=== PATIENT | male | born 1975 | race American Indian/Alaskan Native ===

== ENCOUNTER 2020-10-27 20:37 | Inpatient (IN) | payer OTHER ==
[2020-10-27] MEDS ORDERED: ACETAMINOPHEN 500 MG TAB PO ONE (20:52)
--- NOTE | 2020-10-27 21:57 | XRay Report ---
CHEST 1 VIEW 10/27/2020 9:31 PM INDICATION / CLINICAL INFORMATION: sob, COVID+. COMPARISON: None available. FINDINGS: SUPPORT DEVICES: None. HEART / MEDIASTINUM: Mildly enlarged cardiac silhouette. No other significant abnormality. LUNGS / PLEURA: There are bilateral airspace opacities. No significant pleural effusion. No pneumotho rax. ADDITIONAL FINDINGS: No significant additional findings. IMPRESSION: Bilateral pneumonia. Continued radiographic follow-up to resolution is recommended. Signer Name: John Patel MD Signed: 10/27/2020 9:52 PM Workstation Name: [id number]
[2020-10-27] MEDS ORDERED: DEXAMETHASONE 4 MG TAB PO ONE (22:00)
[2020-10-27] MEDS ORDERED: AZITHROMYCIN 250 MG TAB PO ONE (22:00)
[2020-10-27] MEDS ORDERED: cefTRIAXone/NS 1 GM/50 ML 1 GM/50 ML BAG IV ONE (22:00)
[2020-10-27 22:05] LABS: Basophils % (Auto) 0.6 % (0.0-1.8); Hematocrit 40.2 % (35.5-45.6); Hemoglobin 13.3 gm/dl (11.8-15.2); Lymphocytes % (Auto) 14.3 % (13.4-35.0); Mean Corpuscular HGB Conc 33 % (32-34); Mean Corpuscular Volume 92 fl (84-94); Monocytes # (Auto) 0.9 K/mm3 (0.0-0.8); Monocytes % (Auto) 12.2 % (0.0-7.3); Platelet Count 189 K/mm3 (140-440); Red Blood Count 4.39 M/mm3 (3.65-5.03); Red Cell Distribution Width 13.3 % (13.2-15.2)
--- NOTE | 2020-10-27 22:09 | Emergency Department Report ---
ED Shortness of Breath HPI - General Chief Complaint: Dyspnea/Respdistress Stated Complaint: COVID POSITIVE;WEAKNESS;CONSUELO Time Seen by Provider: 10/27/20 21:11 Source: patient Mode of arrival: Stretcher Limitations: No Limitations - History of Present Illness Initial Comments: 44-year-old male, no past medical history, presents to ED with shortness of br eath. Patient states he tested positive for COVID-19 approximately 4 days ago. Patient states he began having symptoms approximately 1 week ago, which consisted of fever, loss of smell and taste, decreased appetite, and headache. Patient states approximately 3 days ago he began to have dyspnea on exertion which has been progressively worsening. Patient states he has not received his COVID-19 vaccine. MD Complaint: shortness of breath -: week(s) (1) Severity: moderate Consistency: intermittent Improves With: rest Worsens With: exertion Context: recent URI Associated Symptoms: fever Treatments Prior to Arrival: none - Related Data Home Oxygen Therapy: No Allergies Allergy/AdvReac Type Severity Reaction Status Date / Time No Known Allergies Allergy Verified 10/27/20 22:48 ED Review of Systems ROS: Stated complaint: COVID POSITIVE;WEAKNESS;CONSUELO Other details as noted in HPI Comment: All other systems reviewed and negative Constitutional: fever, malaise ENT: other (Reports loss of smell and taste) Respiratory: shortness of breath Neurological: headache ED Past Medical Hx - Past Medical History Previous Medical History?: No - Surgical History Past Surgical History?: No - Social History Smoking Status: Never Smoker Substance Use Type: None ED Physical Exam - General Limitations: No Limitations General appearance: alert, in no apparent distress - Head Head exam: Present: atraumatic, normocephalic - Eye Eye exam: Present: normal appearance, EOMI - ENT ENT exam: Present: mucous membranes moist - Neck Neck exam: Present: normal inspection - Respiratory Respiratory exam: Present: normal lung sounds bilaterally. Absent: respiratory distress - Cardiovascular Cardiovascular Exam: Present: normal rhythm, tachycardia - GI/Abdominal GI/Abdominal exam: Present: soft. Absent: distended, tenderness - Extremities Exam Extremities exam: Present: normal inspection - Neurological Exam Neurological exam: Present: alert, oriented X3 - Psychiatric Psychiatric exam: Present: normal affect, normal mood - Skin Skin exam: Present: warm, dry, intact, normal color ED Course Vital Signs 10/27/20 10/27/20 10/27/20 20:55 22:09 23:48 Temperature 102 F H 100.6 F H Pulse Rate 110 H 102 H Respiratory 16 16 Rate Blood Pressure 112/72 Blood Pressure 120/76 [Left] O2 Sat by Pulse 97 89 95 Oximetry 10/28/20 10/28/20 00:31 01:13 Temperature 98.6 F Pulse Rate 101 H Respiratory 20 20 Rate Blood Pressure 128/81 Blood Pressure [Left] O2 Sat by Pulse 98 95 Oximetry ED Medical Decision Making - Lab Data Result diagrams: 10/27/20 21:49 10/27/20 21:49 - EKG Data -: EKG Interpreted by Id EKG shows normal: sinus rhythm, axis, intervals, QRS complexes, ST-T waves Rate: tachycardia (rate 112) - EKG Data Interpretation: no acute changes - Radiology Data Radiology results: report reviewed, image reviewed - Medical Decision Making 44-year-old male, no past medical history, presents to ED with difficulty breathing. Patient is Covid positive per outside testing. O2 sats 89% on room air here in the ED. Patient has been placed on 4 L O2 via nasal cannula. Chest x-ray shows bilateral pneumonia. Blood cultures drawn, patient given Rocephin, azithromycin, and Decadron. Patient will be admitted by the hospitalist, Dr. Mahoney, for further management. - Differential Diagnosis COVID-19, pneumonia Critical Care Time: Yes Critical care time in (mins) excluding proc time.: 35 Critical care attestation.: If time is entered above; I have spent that time in minutes in the direct care of this critically ill patient, excluding procedure time. Critical Care Time: 35 min ED Disposition Clinical Impression: Pneumonia due to COVID-19 virus, Acute respiratory failure with hypoxia Disposition: OP ADMIT IP TO THIS HOSP Is pt being admited?: Yes Condition: Stable Time of Disposition: 22:24
[2020-10-27 22:17] LABS: BUN/Creatinine Ratio 13; Blood Urea Nitrogen 14 mg/dL (9-20); Calcium 8.3 mg/dL (8.4-10.2); Hemolysis Index 161
[2020-10-27 22:22] LABS: Alanine Aminotransferase 58 units/L (7-56); Albumin 3.2 g/dL (3.9-5)
[2020-10-27 22:23] LABS: Bilirubin,Direct < 0.2 mg/dL (0-0.2); C-Reactive Protein 7.4 mg/dL (0.00-1.30)
[2020-10-27] MEDS ORDERED: hydrALAZINE 20 MG/1 ML INJ IV PRN (22:48)
--- NOTE | 2020-10-27 22:53 | History and Physical Report ---
History of Present Illness Date of examination: 10/27/20 Date of admission: 10/27/20 Chief complaint: Shortness of breath Respiratory distress History of present illness: 44-year-old male with no significant past medical history was brought to the emergency room with shortness of breath, fever, decreased appetite and headache for the last 1 week. Patient was tested positive for Covid 4 days ago. For the last 3 4 days patient shortness of breath is getting worse particularly on exertion. Patient did not take the Covid vaccine. In the emergency room patient is found to have a hypoxic. Covid inflammatory markers are elevated. Medications and Allergies Allergies Allergy/AdvReac Type Severity Reaction Status Date / Time No Known Allergies Allergy Verified 10/27/20 22:48 Active Meds: Active Medications Dexamethasone (Dexamethasone 4 Mg/Ml Vial) 6 mg IV DAILY ONE Stop: 10/27/20 22:48 Famotidine (Famotidine 20 Mg Tab) 20 mg PO BID [facility] Heparin Sodium (Porcine) (Heparin 5,000 Unit/1 Ml Vial) 5,000 unit SUB-Q Q8HR [facility] Hydralazine HCl (Hydralazine 20 Mg/1 Ml Inj) 10 mg IV Q6H PRN PRN Reason: htn Ceftriaxone Sodium (Rocephin/Ns 2 Gm/100 Ml) 2 gm in 100 mls @ 200 mls/hr IV Q24H [facility]; Protocol Azithromycin (Zithromax/Ns) 500 mg in 250 mls @ 250 mls/hr IV Q24H [facility]; Protocol Review of Systems Constitutional: fever, chills, weakness, malaise Respiratory: cough, shortness of breath, dyspnea on exertion Exam - Constitutional Vitals: Temp Pulse Resp BP Pulse Ox 102 F H 110 H 16 112/72 89 10/27/20 20:55 10/27/20 20:55 10/27/20 20:55 10/27/20 20:55 10/27/20 22:09 General appearance: Present: no acute distress, well-nourished - EENT Eyes: Present: PERRL ENT: hearing intact, clear oral mucosa - Neck Neck: Present: supple, normal ROM - Respiratory Respiratory effort: normal Respiratory: bilateral: diminished - Cardiovascular Heart Sounds: Present: S1 & S2. Absent: rub, click - Extremities Extremities: pulses symmetrical, No edema Peripheral Pulses: within normal limits - Abdominal General gastrointestinal: Present: soft, non-tender, non-distended, normal bowel sounds Male genitourinary: Present: normal - Integumentary Integumentary: Present: clear, warm, dry - Musculoskeletal Musculoskeletal: gait normal, strength equal bilaterally - Psychiatric Psychiatric: appropriate mood/affect, intact judgment & insight - Neurologic Neurologic: CNII-XII intact, moves all extremities HEART Score - HEART Score Troponin: Troponin T < 0.010 ng/mL (0.00-0.029) 10/27/20 22:20 Results - Labs CBC & Chem 7: 10/27/20 21:49 10/27/20 21:49 Labs: Laboratory Last Values WBC 7.3 K/mm3 (4.5-11.0) 10/27/20 21:49 RBC 4.39 M/mm3 (3.65-5.03) 10/27/20 21:49 Hgb 13.3 gm/dl (11.8-15.2) 10/27/20 21:49 Hct 40.2 % (35.5-45.6) 10/27/20 21:49 MCV 92 fl (84-94) 10/27/20 21:49 MCH 30 pg (28-32) 10/27/20 21:49 MCHC 33 % (32-34) 10/27/20 21:49 RDW 13.3 % (13.2-15.2) 10/27/20 21:49 Plt Count 189 K/mm3 (140-440) 10/27/20 21:49 Lymph % (Auto) 14.3 % (13.4-35.0) 10/27/20 21:49 [place] % (Auto) 12.2 % (0.0-7.3) H 10/27/20 21:49 Eos % (Auto) 0.0 % (0.0-4.3) 10/27/20 21:49 Baso % (Auto) 0.6 % (0.0-1.8) 10/27/20 21:49 Lymph # (Auto) 1.0 K/mm3 (1.2-5.4) L 10/27/20 21:49 [place] # (Auto) 0.9 K/mm3 (0.0-0.8) H 10/27/20 21:49 Eos # (Auto) 0.0 K/mm3 (0.0-0.4) 10/27/20 21:49 Baso # (Auto) 0.0 K/mm3 (0.0-0.1) 10/27/20 21:49 Seg Neutrophils % 72.9 % (40.0-70.0) H 10/27/20 21:49 Seg Neutrophils # 5.3 K/mm3 (1.8-7.7) 10/27/20 21:49 D-Dimer 1296.09 ng/mlDDU (0-234) H 10/27/20 21:49 Sodium 134 mmol/L (137-145) L 10/27/20 21:49 Potassium 4.4 mmol/L (3.6-5.0) 10/27/20 21:49 Chloride 96.2 mmol/L (98-107) L 10/27/20 21:49 Carbon Dioxide 29 mmol/L (22-30) 10/27/20 21:49 Anion Gap 13 mmol/L 10/27/20 21:49 BUN 14 mg/dL (9-20) 10/27/20 21:49 Creatinine 1.1 mg/dL (0.8-1.3) 10/27/20 21:49 Estimated GFR > 60 ml/min 10/27/20 21:49 BUN/Creatinine Ratio 13 % 10/27/20 21:49 Glucose 161 mg/dL (75-100) H 10/27/20 21:49 Glucose 166 mg/dL (75-100) H 10/27/20 21:49 Calcium 8.3 mg/dL (8.4-10.2) L 10/27/20 21:49 Ferritin > 2000.0 ng/mL (30.0-300.0) H 10/27/20 21:49 Total Bilirubin 0.90 mg/dL (0.1-1.2) 10/27/20 21:49 Direct Bilirubin < 0.2 mg/dL (0-0.2) 10/27/20 21:49 Indirect Bilirubin 0.7 mg/dL 10/27/20 21:49 AST 122 units/L (5-40) H 10/27/20 21:49 ALT 58 units/L (7-56) H 10/27/20 21:49 Alkaline Phosphatase 82 units/L (35-129) 10/27/20 21:49 Lactate Dehydrogenase 1964 units/L (91-180) H 10/27/20 21:49 Troponin T < 0.010 ng/mL (0.00-0.029) 10/27/20 22:20 C-Reactive Protein 7.40 mg/dL (0.00-1.30) H 10/27/20 21:49 Total Protein 7.6 g/dL (6.3-8.2) 10/27/20 21:49 Albumin 3.2 g/dL (3.9-5) L 10/27/20 21:49 Albumin/Globulin Ratio 0.7 % 10/27/20 21:49 - Imaging and Cardiology Chest x-ray: image reviewed Assessment and Plan VTE prophylaxis?: Chemical Plan of care discussed with patient/family: Yes - Patient Problems (1) Acute respiratory failure with hypoxia Current Visit: Yes Status: Acute Plan to address problem: Admit the patient to the medical floor. Oxygen by nasal cannula 3 L/min. DuoNeb by nebulizer every 4 hours as needed. Rocephin 2 g IV daily and Zithromax 500 mg IV daily. Decadron 6 mg IV daily. We do the blood cultures sputum culture. We also consult infectious disease for evaluation and treatment. Follow the Covid inflammatory marker. Recheck CBC BMP in the morning (2) Pneumonia due to COVID-19 virus Current Visit: Yes Status: Acute Plan to address problem: Oxygen by nasal cannula 3 L/min. DuoNeb by nebulizer every 4 hours as needed. Rocephin 2 g IV daily and Zithromax 500 mg IV daily. Decadron 6 mg IV daily. We do the blood cultures sputum culture. We also consult infectious disease for evaluation and treatment. Follow the Covid inflammatory marker. Recheck CBC BMP in the morning (3) Hypoxia Current Visit: Yes Status: Acute Plan to address problem: Oxygen by nasal cannula 3 L/min. DuoNeb by nebulizer every 4 hours as needed. Consult pulmonary if needed. Heparin 5000 units subcu every 8 hours (4) DVT prophylaxis Current Visit: Yes Status: Acute Plan to address problem: Heparin 5000 units subcu every 8 hours for DVT prophylaxis. Pepcid 20 mg p.o. twice daily for GI prophylaxis. Patient is a full code
[2020-10-27] MEDS ORDERED: ONDANSETRON 4 MG/2 ML INJ IV PRN (23:15)
[2020-10-27] MEDS ORDERED: ACETAMINOPHEN 325 MG TAB PO PRN (23:15)
[2020-10-28] MEDS ORDERED: HEPARIN 5,000 UNIT/1 ML VIAL SUB-Q SCH (06:00)
[2020-10-28 06:37] LABS: Hematocrit 39.3 % (35.5-45.6); Hemoglobin 13.2 gm/dl (11.8-15.2); Mean Corpuscular HGB Conc 34 % (32-34); Mean Corpuscular Volume 90 fl (84-94); Platelet Count 219 K/mm3 (140-440); Red Blood Count 4.36 M/mm3 (3.65-5.03)
[2020-10-28 06:58] LABS: BUN/Creatinine Ratio 16; Blood Urea Nitrogen 16 mg/dL (9-20); Calcium 8.6 mg/dL (8.4-10.2); Hemolysis Index 198
--- NOTE | 2020-10-28 09:07 | Progress Note ---
Assessment and Plan Assessment and plan: #Acute hypoxic respiratory failure Continue oxygen supplementation Currently on 3 L of oxygen #COVID-19 pneumonia Continue oxygen supplementation Ceftriaxone azithromycin Dexamethasone ID consult for remdesivir Trend inflammatory markers Proning as much as possible DVT prophylaxis #DVT prophylaxis-Lovenox History Interval history: 44-year-old male with no significant past medical history was brought to the emergency room with shortness of breath, fever, decreased appetite and headache for the last 1 week. Patient was tested positive for Covid 4 days ago. For the last 3 - 4 days patients shortness of breath has been getting worse particularly on exertion. Patient did not take the Covid vaccine. Due to persisting symptoms, he presented to the ED for further evaluation. Here in the emergency room he was found to have a hypoxic. Chest xray showed bilateral infiltrates. He was started on antibiotics and dexamethasone and admitted. 10/28. Patient seen and examined at bedside. Comfortable at rest but gets dyspneic with ambulation. On 3L oxygen. Ordered incentive spirometer. Advised proning as much as possible. Will consult pulmonary. Hospitalist Physical - Physical exam Narrative exam: VITAL SIGNS: Reviewed. GENERAL: Awake HEAD: No signs of head trauma. EYES: Pupils are equal. Extraocular motions intact. MOUTH: Oropharynx is normal. NECK: No adenopathy, no JVD. CHEST: Chest with diminished breath sounds bilaterally. No wheezes, rales, or rhonchi. CARDIAC: normal S1 and S2, without murmurs, gallops, or rubs. ABDOMEN: Soft, non tender and non distended. No rebound or guarding, and no masses palpated. Bowel Sounds normal. MUSCULOSKELETAL: No edema NEUROLOGIC EXAM: Alert and oriented x3. No focal neurologic deficits SKIN: No obvious lesions - Constitutional Vitals: Temp Pulse Resp BP Pulse Ox 98.1 F 93 H 16 114/82 96 10/28/20 04:35 10/28/20 04:35 10/28/20 04:35 10/28/20 04:35 10/28/20 04:35 HEART Score - HEART Score Troponin: Troponin T < 0.010 ng/mL (0.00-0.029) 10/27/20 22:20 Results - Labs CBC & Chem 7: 10/28/20 05:33 10/28/20 14:03 Labs: Laboratory Last Values WBC 6.5 K/mm3 (4.5-11.0) 10/28/20 05:33 RBC 4.36 M/mm3 (3.65-5.03) 10/28/20 05:33 Hgb 13.2 gm/dl (11.8-15.2) 10/28/20 05:33 Hct 39.3 % (35.5-45.6) 10/28/20 05:33 MCV 90 fl (84-94) 10/28/20 05:33 MCH 30 pg (28-32) 10/28/20 05:33 MCHC 34 % (32-34) 10/28/20 05:33 RDW 13.0 % (13.2-15.2) L 10/28/20 05:33 Plt Count 219 K/mm3 (140-440) 10/28/20 05:33 Lymph % (Auto) 14.3 % (13.4-35.0) 10/27/20 21:49 [place] % (Auto) 12.2 % (0.0-7.3) H 10/27/20 21:49 Eos % (Auto) 0.0 % (0.0-4.3) 10/27/20 21:49 Baso % (Auto) 0.6 % (0.0-1.8) 10/27/20 21:49 Lymph # (Auto) 1.0 K/mm3 (1.2-5.4) L 10/27/20 21:49 [place] # (Auto) 0.9 K/mm3 (0.0-0.8) H 10/27/20 21:49 Eos # (Auto) 0.0 K/mm3 (0.0-0.4) 10/27/20 21:49 Baso # (Auto) 0.0 K/mm3 (0.0-0.1) 10/27/20 21:49 Seg Neutrophils % 72.9 % (40.0-70.0) H 10/27/20 21:49 Seg Neutrophils # 5.3 K/mm3 (1.8-7.7) 10/27/20 21:49 D-Dimer 1296.09 ng/mlDDU (0-234) H 10/27/20 21:49 Sodium 135 mmol/L (137-145) L 10/28/20 05:33 Potassium 5.0 mmol/L (3.6-5.0) 10/28/20 05:33 Chloride 97.0 mmol/L (98-107) L 10/28/20 05:33 Carbon Dioxide 27 mmol/L (22-30) 10/28/20 05:33 Anion Gap 16 mmol/L 10/28/20 05:33 BUN 16 mg/dL (9-20) 10/28/20 05:33 Creatinine 1.0 mg/dL (0.8-1.3) 10/28/20 05:33 Estimated GFR > 60 ml/min 10/28/20 05:33 BUN/Creatinine Ratio 16 % 10/28/20 05:33 Glucose 222 mg/dL (75-100) H 10/28/20 05:33 Calcium 8.6 mg/dL (8.4-10.2) 10/28/20 05:33 Ferritin > 2000.0 ng/mL (30.0-300.0) H 10/27/20 21:49 Total Bilirubin 0.90 mg/dL (0.1-1.2) 10/27/20 21:49 Direct Bilirubin < 0.2 mg/dL (0-0.2) 10/27/20 21:49 Indirect Bilirubin 0.7 mg/dL 10/27/20 21:49 AST 122 units/L (5-40) H 10/27/20 21:49 ALT 58 units/L (7-56) H 10/27/20 21:49 Alkaline Phosphatase 82 units/L (35-129) 10/27/20 21:49 Lactate Dehydrogenase 1964 units/L (91-180) H 10/27/20 21:49 Troponin T < 0.010 ng/mL (0.00-0.029) 10/27/20 22:20 C-Reactive Protein 7.40 mg/dL (0.00-1.30) H 10/27/20 21:49 Total Protein 7.6 g/dL (6.3-8.2) 10/27/20 21:49 Albumin 3.2 g/dL (3.9-5) L 10/27/20 21:49 Albumin/Globulin Ratio 0.7 % 10/27/20 21:49 Microbiology: Microbiology 10/27/20 21:49 Peripheral/Venous Blood Culture - Preliminary Culture in Progress 10/27/20 21:49 Peripheral/Venous Blood Culture - Preliminary Culture in Progress [place]/IV: Voiding Method Urinal Active Medications - Current Medications Current Medications: Generic Name Dose Route Start Last Admin Trade Name Freq PRN Reason Stop Dose Admin Acetaminophen 650 mg 10/27/20 23:15 Acetaminophen 325 Mg Tab PO Q4H PRN Pain MILD(1-3)/Fever >100.5/MALIK Dexamethasone 6 mg 10/28/20 22:00 Dexamethasone 4 Mg/Ml Vial IV DAILY@2200 [facility] Famotidine 20 mg 10/28/20 10:00 Famotidine 20 Mg Tab PO BID [facility] Heparin Sodium (Porcine) 5,000 unit 10/28/20 06:00 10/28/20 05:34 Heparin 5,000 Unit/1 Ml Vial SUB-Q 5,000 unit Q8HR [facility] Administration Hydralazine HCl 10 mg 10/27/20 22:48 Hydralazine 20 Mg/1 Ml Inj IV Q6H PRN htn Ceftriaxone Sodium 2 gm in 100 mls @ 200 mls/hr 10/28/20 22:00 Rocephin/Ns 2 Gm/100 Ml IV Q24H [facility] Protocol Azithromycin 500 mg in 250 mls @ 250 mls/hr 10/28/20 22:00 Zithromax/Ns IV Q24H [facility] Protocol Ondansetron HCl 4 mg 10/27/20 23:15 Ondansetron 4 Mg/2 Ml Inj IV Q8H PRN Nausea And Vomiting Sodium Chloride 10 ml 10/28/20 10:00 Sodium Chloride 0.9% 10 Ml Flush Syringe IV BID [facility] Sodium Chloride 10 ml 10/27/20 23:15 Sodium Chloride 0.9% 10 Ml Flush Syringe IV PRN PRN LINE FLUSH
[2020-10-28] MEDS: FAMOTIDINE 20 MG TAB PO SCH ×2 (10:11→21:14)
[2020-10-28] MEDS: ASCORBIC ACID 500 MG TAB PO SCH (10:11)
[2020-10-28] MEDS: ZINC SULFATE 220 MG CAP PO SCH (10:11)
[2020-10-28] MEDS: BENZONATATE 100 MG CAP PO SCH ×3 (10:11→21:15)
[2020-10-28] MEDS ORDERED: REMDESIVIR 100 MG VIAL IV ONE (12:00)
[2020-10-28] MEDS ORDERED: REMDESIVIR 200 MG in SODIUM CHLORIDE 0.9% 250ML 250 ML IV ONE (12:00)
[2020-10-28] MEDS ORDERED: FUROSEMIDE 20 MG/2 ML INJ IV ONE (12:55)
--- NOTE | 2020-10-28 12:56 | Consultation ---
History of Present Illness Consult date: 10/28/20 Requesting physician: AUDRA YOUSSEF Reason for consult: hypoxemia History of present illness: 44 y/o male with acute respiratory failure secondary to covid 19. Medications and Allergies Allergies Allergy/AdvReac Type Severity Reaction Status Date / Time No Known Allergies Allergy Verified 10/27/20 22:48 Active Meds: Active Medications Acetaminophen (Acetaminophen 325 Mg Tab) 650 mg PO Q4H PRN PRN Reason: Pain MILD(1-3)/Fever >100.5/MALIK Ascorbic Acid (Ascorbic Acid 500 Mg Tab) 500 mg PO QDAY [facility] Last Admin: 10/28/20 10:11 Dose: 500 mg Documented by: Benzonatate (Benzonatate 100 Mg Cap) 100 mg PO Q8HR [facility] Last Admin: 10/28/20 10:11 Dose: 100 mg Documented by: Dexamethasone (Dexamethasone 4 Mg/Ml Vial) 6 mg IV DAILY@2200 [facility] Enoxaparin Sodium (Enoxaparin 40 Mg/0.4 Ml Inj) 40 mg SUB-Q QDAY@2200 [facility]; Protocol Famotidine (Famotidine 20 Mg Tab) 20 mg PO BID [facility] Last Admin: 10/28/20 10:11 Dose: 20 mg Documented by: Furosemide (Furosemide 20 Mg/2 Ml Inj) 20 mg IV ONCE ONE Stop: 10/28/20 12:56 Hydralazine HCl (Hydralazine 20 Mg/1 Ml Inj) 10 mg IV Q6H PRN PRN Reason: htn Ceftriaxone Sodium (Rocephin/Ns 2 Gm/100 Ml) 2 gm in 100 mls @ 200 mls/hr IV Q24H [facility]; Protocol Azithromycin (Zithromax/Ns) 500 mg in 250 mls @ 250 mls/hr IV Q24H [facility]; Protocol REMDESIVIR 100 mg/ Sodium (Chloride) 250 mls @ 500 mls/hr IV Q24HR@2100 [facility] Stop: 11/01/20 21:29 Ondansetron HCl (Ondansetron 4 Mg/2 Ml Inj) 4 mg IV Q8H PRN PRN Reason: Nausea And Vomiting Sodium Chloride (Sodium Chloride 0.9% 10 Ml Flush Syringe) 10 ml IV BID [facility] Last Admin: 10/28/20 10:11 Dose: 10 ml Documented by: Sodium Chloride (Sodium Chloride 0.9% 10 Ml Flush Syringe) 10 ml IV PRN PRN PRN Reason: LINE FLUSH Sodium Chloride (Sodium Chloride 0.9% 50 Ml Ivpb) 50 ml IV Q24HR@2100 [facility] Stop: 10/31/20 21:01 Zinc Sulfate (Zinc Sulfate 220 Mg Cap) 220 mg PO QDAY [facility] Last Admin: 10/28/20 10:11 Dose: 220 mg Documented by: Physical Examination Vital signs: Vital Signs Temp Pulse Resp BP Pulse Ox 102 F H 110 H 16 112/72 97 10/27/20 20:55 10/27/20 20:55 10/27/20 20:55 10/27/20 20:55 10/27/20 20:55 Results - Laboratory Findings CBC and BMP: 10/28/20 05:33 10/29/20 07:11 PT/INR, D-dimer D-Dimer 1296.09 ng/mlDDU (0-234) H 10/27/20 21:49 Abnormal lab findings: Abnormal Labs 10/27/20 10/27/20 10/27/20 21:49 21:49 21:49 RDW [place] % (Auto) 12.2 H Lymph # (Auto) 1.0 L [place] # (Auto) 0.9 H Seg Neutrophils % 72.9 H D-Dimer Sodium 134 L Chloride 96.2 L Glucose 166 H Calcium 8.3 L Ferritin AST 122 H ALT 58 H Lactate Dehydrogenase C-Reactive Protein Albumin 3.2 L 10/27/20 10/27/20 10/27/20 21:49 21:49 21:49 RDW [place] % (Auto) Lymph # (Auto) [place] # (Auto) Seg Neutrophils % D-Dimer 1296.09 H Sodium Chloride Glucose 161 H Calcium Ferritin > 2000.0 H AST ALT Lactate Dehydrogenase 1964 H C-Reactive Protein 7.40 H Albumin 10/28/20 10/28/20 05:33 05:33 RDW 13.0 L [place] % (Auto) Lymph # (Auto) [place] # (Auto) Seg Neutrophils % D-Dimer Sodium 135 L Chloride 97.0 L Glucose 222 H Calcium Ferritin AST ALT Lactate Dehydrogenase C-Reactive Protein Albumin Assessment and Plan Prone as tolerated daily and sleep prone at night Suggest ID consult for Remdesivier and consideration of Actemra Limit excess volume Lasix 20mg IV x1 today.
--- NOTE | 2020-10-28 13:30 | Consultation ---
History of Present Illness - Reason for Consult Consult date: 10/28/20 COVID19 Requesting physician: HANANE ROMEO - History of Present Illness 44 years old male with no significant medical history, admitted on 10/27/2020 secondary to 4 days history of generalized malaise, subjective fever, decreased appetite, headaches, loss of smell and taste, shortness of breath and progressive dyspnea on exertion. Patient tested positive for COVID-19 4 days before admission. On arrival, temperature 102, HR 110, RR 16, O2 sat 97, BP 112/72. Initial WBC 7.3. D-dimer 1296. Ferritin> 2000. LDH 1964. Creatinine 1.1. CRP 7.4. AST 122. ALT 58. Blood cultures no growth today. Chest x-ray shows bilateral infiltrates. O2 sats dropped to 89%. Patient currently on 2 L nasal cannula. Review of Systems: positive in bold print General: fever, chills, malaise Cutaneous: rash, pruritus Head: headaches or injury Eyes: changes in vision, eye pain, double vision Ears: ear pain, ear discharge, ringing or hearing loss Nose: nose bleeding, stuffiness Mouth & throat: bleeding gums, horseness, no dental problems, or swollen glands Neck: no pain, node enlargement/lumps, tyroid enlargement or tenderness Respiratory: SOB, cough, FRAZIER, wheezing, sputum, hemoptysis, pleuritic chest pain Cardiovascular: chest pain, leg edema, cyanosis, FRAZIER, orthopnea Musculoskeletal: edema, deformities, pain Gastrointestinal: nausea, vomiting, hematemesis, diarrhea, constipation, melena, bright red blood in stools, fecal incontinence, jaundice Genitourinary/Reproductive: frequent urination, dysuria, hematuria, incontinence Neurogical: seizures, headaches, weakness, paresthesias, loss of speech or vision; memory loss, vertigo, tremors, numbness Psychiatric: stable mood; excessive anxiety, sadness or moodiness Medications and Allergies Allergies Allergy/AdvReac Type Severity Reaction Status Date / Time No Known Allergies Allergy Verified 10/27/20 22:48 Active Meds: Active Medications Acetaminophen (Acetaminophen 325 Mg Tab) 650 mg PO Q4H PRN PRN Reason: Pain MILD(1-3)/Fever >100.5/MALIK Ascorbic Acid (Ascorbic Acid 500 Mg Tab) 500 mg PO QDAY CARMEL Last Admin: 10/28/20 10:11 Dose: 500 mg Documented by: Benzonatate (Benzonatate 100 Mg Cap) 100 mg PO Q8HR [facility] Last Admin: 10/28/20 10:11 Dose: 100 mg Documented by: Dexamethasone (Dexamethasone 4 Mg/Ml Vial) 6 mg IV DAILY@2200 [facility] Enoxaparin Sodium (Enoxaparin 40 Mg/0.4 Ml Inj) 40 mg SUB-Q QDAY@2200 [facility]; Protocol Famotidine (Famotidine 20 Mg Tab) 20 mg PO BID [facility] Last Admin: 10/28/20 10:11 Dose: 20 mg Documented by: Hydralazine HCl (Hydralazine 20 Mg/1 Ml Inj) 10 mg IV Q6H PRN PRN Reason: htn Ceftriaxone Sodium (Rocephin/Ns 2 Gm/100 Ml) 2 gm in 100 mls @ 200 mls/hr IV Q24H [facility]; Protocol Azithromycin (Zithromax/Ns) 500 mg in 250 mls @ 250 mls/hr IV Q24H [facility]; Protocol REMDESIVIR 100 mg/ Sodium (Chloride) 250 mls @ 500 mls/hr IV Q24HR@2100 [facility] Stop: 11/01/20 21:29 Ondansetron HCl (Ondansetron 4 Mg/2 Ml Inj) 4 mg IV Q8H PRN PRN Reason: Nausea And Vomiting Sodium Chloride (Sodium Chloride 0.9% 10 Ml Flush Syringe) 10 ml IV BID [facility] Last Admin: 10/28/20 10:11 Dose: 10 ml Documented by: Sodium Chloride (Sodium Chloride 0.9% 10 Ml Flush Syringe) 10 ml IV PRN PRN PRN Reason: LINE FLUSH Sodium Chloride (Sodium Chloride 0.9% 50 Ml Ivpb) 50 ml IV Q24HR@2100 [facility] Stop: 10/31/20 21:01 Zinc Sulfate (Zinc Sulfate 220 Mg Cap) 220 mg PO QDAY [facility] Last Admin: 10/28/20 10:11 Dose: 220 mg Documented by: Physical Examination - Physical Exam Narrative exam: General appearance: Alert in NAD pleasant Eyes: anicteric sclerae, moist conjunctivae; no lid-lag; PERRLA HENT: Normocephalic, Atraumatic; normal external ears, nares open, oropharynx clear Neck: supple, tracheal midline, no JVD Lungs: Bilateral crackles CV: Tachycardic Abdomen: Soft, non-tender; no masses or hepatosplenomegaly Extremities: no edema, no cyanosis Skin: No rash. Psych: no agitated Neuro: alert and oriented x 3. Moving all extermities - Constitutional Vitals: Vital Signs Temp Pulse Resp BP Pulse Ox 98.1 F 93 H 16 114/82 95 10/28/20 04:35 10/28/20 04:35 10/28/20 04:35 10/28/20 04:35 10/28/20 09:52 Temperature -Last 24 Hours Temperature 98.1 F Temperature 98.6 F Temperature 100.6 F Temperature 102 F Results - Labs CBC & Chem 7: 10/28/20 05:33 10/28/20 05:33 Labs: Abnormal lab results 10/27/20 10/27/20 10/27/20 Range/Units 21:49 21:49 21:49 RDW (13.2-15.2) % [place] % (Auto) 12.2 H (0.0-7.3) % Lymph # (Auto) 1.0 L (1.2-5.4) K/mm3 [place] # (Auto) 0.9 H (0.0-0.8) K/mm3 Seg Neutrophils % 72.9 H (40.0-70.0) % D-Dimer (0-234) ng/mlDDU Sodium 134 L (137-145) mmol/L Chloride 96.2 L (98-107) mmol/L Glucose 166 H (75-100) mg/dL Calcium 8.3 L (8.4-10.2) mg/dL Ferritin (30.0-300.0) ng/mL AST 122 H (5-40) units/L ALT 58 H (7-56) units/L Lactate Dehydrogenase (91-180) units/L C-Reactive Protein (0.00-1.30) mg/dL Albumin 3.2 L (3.9-5) g/dL 10/27/20 10/27/20 10/27/20 Range/Units 21:49 21:49 21:49 RDW (13.2-15.2) % [place] % (Auto) (0.0-7.3) % Lymph # (Auto) (1.2-5.4) K/mm3 [place] # (Auto) (0.0-0.8) K/mm3 Seg Neutrophils % (40.0-70.0) % D-Dimer 1296.09 H (0-234) ng/mlDDU Sodium (137-145) mmol/L Chloride (98-107) mmol/L Glucose 161 H (75-100) mg/dL Calcium (8.4-10.2) mg/dL Ferritin > 2000.0 H (30.0-300.0) ng/mL AST (5-40) units/L ALT (7-56) units/L Lactate Dehydrogenase 1964 H (91-180) units/L C-Reactive Protein 7.40 H (0.00-1.30) mg/dL Albumin (3.9-5) g/dL 10/28/20 10/28/20 Range/Units 05:33 05:33 RDW 13.0 L (13.2-15.2) % [place] % (Auto) (0.0-7.3) % Lymph # (Auto) (1.2-5.4) K/mm3 [place] # (Auto) (0.0-0.8) K/mm3 Seg Neutrophils % (40.0-70.0) % D-Dimer (0-234) ng/mlDDU Sodium 135 L (137-145) mmol/L Chloride 97.0 L (98-107) mmol/L Glucose 222 H (75-100) mg/dL Calcium (8.4-10.2) mg/dL Ferritin (30.0-300.0) ng/mL AST (5-40) units/L ALT (7-56) units/L Lactate Dehydrogenase (91-180) units/L C-Reactive Protein (0.00-1.30) mg/dL Albumin (3.9-5) g/dL Assessment and Plan Cultures: Blood culture SARS CoV2 PCR Assessment: 44 years old male with no significant medical history, admitted on 10/27/2020 secondary to 4 days history of generalized malaise, subjective fever, decreased appetite, headaches, loss of smell and taste, shortness of breath and progressive dyspnea on exertion. Patient tested positive for COVID-19 4 days before admission: #Severe sepsis: Present on admission with tachycardia, high fever, hypoxia, likely due to bilateral pneumonia. #Severe COVID pneumonia: SARS-CoV-2 PCR positive as an outpatient. Chest x-ray with bilateral infiltrates. Inflammatory markers elevated. D-dimer 1296. Ferritin> 2000. LDH 1964. CRP 7.4. #Acute hypoxemic respiratory failure: O2 sats dropped to 89%, patient currently on 2 L nasal cannula #Elevated LFTs: from COVID initial AST 122. ALT 58. Recommendations: -Start Dexamethasone 6 mg IV/PO daily for 10 days -Start Remdesivir for 5 days (CrCl>30 mg/mL) -Monitor inflammatory markers - ferritin, Ddimer, CRP, LDH -Monitor liver function test on Remdesivir -Continue anticoagulation per System Protocol -Prone positioning as possible -Check procalcitonin, if low, stop azithromycin and ceftriaxone All laboratory, cultures and imaging were reviewed. Will follow Anh Kaur MD Infectious Diseases [facility] ([facility] M [phone] O [phone]
[2020-10-28] MEDS: SODIUM CHLORIDE 0.9% 50 ML IVPB IV SCH ×2 (14:00→21:14)
[2020-10-28 14:38] LABS: Band Neutrophils # (Manual) 0.3 K/mm3; Total Cells Counted 100
[2020-10-28 14:39] LABS: Anisocytosis 1+; Ovalocytes Few; Platelet Estimate Consistent w Auto
[2020-10-28 14:59] LABS: Alanine Aminotransferase 58 units/L (7-56); Albumin 3.3 g/dL (3.9-5); BUN/Creatinine Ratio 21; Blood Urea Nitrogen 19 mg/dL (9-20); Calcium 8.8 mg/dL (8.4-10.2); Hemolysis Index 181
--- NOTE | 2020-10-28 15:23 | Vascular Lab Report ---
DUPLEX DOPPLER LOWER EXTREMITY VEINS, BILATERAL INDICATION / CLINICAL INFORMATION: Bilateral lower extremity pain/swelling, possible DVT. TECHNIQUE: Duplex doppler imaging was performed through the veins of both lower extremities using venous deysi marjorie and other maneuvers. COMPARISON: None available. FINDINGS: RIGHT COMMON FEMORAL VEIN: Negative. RIGHT FEMORAL VEIN: Negative. RIGHT POPLITEAL VEIN: Negative. RIGHT CALF VEINS: Negative. LEFT COMMON FEMORAL VEIN: Negative. LEFT FEMORAL VEIN: Negative. LEFT POPLITEAL VEIN: Negative. LEFT CALF VEINS: Negative. ADDITIONAL FINDINGS: None. IMPRESSION: 1. No sonographic evidence for DVT in either lower extremity. Signer Name: John Patel MD Signed: 10/28/2020 3:19 PM Workstation Name: [id number]
[2020-10-28] MEDS: ENOXAPARIN 40 MG/0.4 ML INJ SUB-Q SCH (21:10)
[2020-10-28] MEDS ORDERED: dexAMETHasone 4 MG/ML VIAL IV SCH (22:00)
[2020-10-28] MEDS ORDERED: AZITHROMYCIN/NS 500 MG/250 ML 500 MG/250 ML BAG IV SCH (22:00)
[2020-10-28] MEDS ORDERED: cefTRIAXone/NS 2 GM/100 ML 2 GM/100 ML BAG IV SCH (22:00)
[2020-10-29] MEDS: BENZONATATE 100 MG CAP PO SCH ×3 (05:47→21:17)
[2020-10-29 08:01] LABS: Alanine Aminotransferase 49 units/L (7-56); Albumin 3.3 g/dL (3.9-5); BUN/Creatinine Ratio 26; Blood Urea Nitrogen 23 mg/dL (9-20); Calcium 8.7 mg/dL (8.4-10.2); Hemolysis Index 136
--- NOTE | 2020-10-29 09:17 | Progress Note ---
Assessment and Plan Assessment and plan: #Acute hypoxic respiratory failure Continue oxygen supplementation #COVID-19 pneumonia Continue oxygen supplementation Ceftriaxone and azithromycin. Procalcitonin pending Dexamethasone Remdesivir Trend inflammatory markers Proning as much as possible DVT prophylaxis per facility protocol Pulmonology and ID following #DVT prophylaxis-Lovenox History Interval history: 44-year-old male with no significant past medical history was brought to the emergency room with shortness of breath, fever, decreased appetite and headache for the last 1 week. Patient was tested positive for Covid 4 days ago. For the last 3 - 4 days patients shortness of breath has been getting worse particularly on exertion. Patient did not take the Covid vaccine. Due to persisting symptoms, he presented to the ED for further evaluation. Here in the emergency room he was found to have a hypoxic. Chest xray showed bilateral infiltrates. He was started on antibiotics and dexamethasone and admitted. 10/28. Patient seen and examined at bedside. Comfortable at rest but gets dy spneic with ambulation. On 3L oxygen. Ordered incentive spirometer. Advised proning as much as possible. Will consult pulmonary. 10/29. He feels just about the same. Remains on oxygen. Pulmonology and ID following. Awaiting procalcitonin. Continue IV antibiotics and dexamethasone. On remdesivir day 2. Hospitalist Physical - Physical exam Narrative exam: VITAL SIGNS: Reviewed. GENERAL: Awake HEAD: No signs of head trauma. EYES: Pupils are equal. Extraocular motions intact. MOUTH: Oropharynx is normal. NECK: No adenopathy, no JVD. CHEST: Chest with diminished breath sounds bilaterally. No wheezes, rales, or rhonchi. CARDIAC: normal S1 and S2, without murmurs, gallops, or rubs. ABDOMEN: Soft, non tender and non distended. No rebound or guarding, and no masses palpated. Bowel Sounds normal. MUSCULOSKELETAL: No edema NEUROLOGIC EXAM: Alert and oriented x3. No focal neurologic deficits SKIN: No obvious lesions - Constitutional Vitals: Temp Pulse Resp BP Pulse Ox 98.5 F 86 20 125/83 96 10/29/20 05:09 10/29/20 05:09 10/29/20 05:09 10/29/20 05:09 10/29/20 05:09 HEART Score - HEART Score Troponin: Troponin T < 0.010 ng/mL (0.00-0.029) 04/10/21 22:20 Results - Labs CBC & Chem 7: 10/28/20 05:33 10/29/20 07:11 Labs: Laboratory Last Values WBC 6.5 K/mm3 (4.5-11.0) 10/28/20 05:33 RBC 4.36 M/mm3 (3.65-5.03) 10/28/20 05:33 Hgb 13.2 gm/dl (11.8-15.2) 10/28/20 05:33 Hct 39.3 % (35.5-45.6) 10/28/20 05:33 MCV 90 fl (84-94) 10/28/20 05:33 MCH 30 pg (28-32) 10/28/20 05:33 MCHC 34 % (32-34) 10/28/20 05:33 RDW 13.0 % (13.2-15.2) L 10/28/20 05:33 Plt Count 219 K/mm3 (140-440) 10/28/20 05:33 Lymph % (Auto) 14.3 % (13.4-35.0) 10/27/20 21:49 [place] % (Auto) 12.2 % (0.0-7.3) H 10/27/20 21:49 Eos % (Auto) 0.0 % (0.0-4.3) 10/27/20 21:49 Baso % (Auto) 0.6 % (0.0-1.8) 10/27/20 21:49 Lymph # (Auto) 1.0 K/mm3 (1.2-5.4) L 10/27/20 21:49 [place] # (Auto) 0.9 K/mm3 (0.0-0.8) H 10/27/20 21:49 Eos # (Auto) 0.0 K/mm3 (0.0-0.4) 10/27/20 21:49 Baso # (Auto) 0.0 K/mm3 (0.0-0.1) 10/27/20 21:49 Add Manual Diff Complete 10/28/20 05:33 Total Counted 100 10/28/20 05:33 Seg Neutrophils % 72.9 % (40.0-70.0) H 10/27/20 21:49 Seg Neuts % (Manual) 70.0 % (40.0-70.0) 10/28/20 05:33 Band Neutrophils % 5.0 % 10/28/20 05:33 Lymphocytes % (Manual) 13.0 % (13.4-35.0) L 10/28/20 05:33 Reactive Lymphs % (Man) 1.0 % 10/28/20 05:33 Monocytes % (Manual) 11.0 % (0.0-7.3) H 10/28/20 05:33 Nucleated RBC % Not Reportable 10/28/20 05:33 Seg Neutrophils # 5.3 K/mm3 (1.8-7.7) 10/27/20 21:49 Seg Neutrophils # Man 4.6 K/mm3 (1.8-7.7) 10/28/20 05:33 Band Neutrophils # 0.3 K/mm3 10/28/20 05:33 Lymphocytes # (Manual) 0.8 K/mm3 (1.2-5.4) L 10/28/20 05:33 Abs React Lymphs (Man) 0.1 K/mm3 10/28/20 05:33 Monocytes # (Manual) 0.7 K/mm3 (0.0-0.8) 10/28/20 05:33 Eosinophils # (Manual) 0.0 K/mm3 (0.0-0.4) 10/28/20 05:33 Basophils # (Manual) 0.0 K/mm3 (0.0-0.1) 10/28/20 05:33 Metamyelocytes # 0.0 K/mm3 10/28/20 05:33 Myelocytes # 0.0 K/mm3 10/28/20 05:33 Promyelocytes # 0.0 K/mm3 10/28/20 05:33 Blast Cells # 0.0 K/mm3 10/28/20 05:33 WBC Morphology Not Reportable 10/28/20 05:33 Hypersegmented Neuts Not Reportable 10/28/20 05:33 Hyposegmented Neuts Not Reportable 10/28/20 05:33 Hypogranular Neuts Not Reportable 10/28/20 05:33 Smudge Cells Not Reportable 10/28/20 05:33 Toxic Granulation Not Reportable 10/28/20 05:33 Toxic Vacuolation Not Reportable 10/28/20 05:33 Dohle Bodies Not Reportable 10/28/20 05:33 Pelger-Huet Anomaly Not Reportable 10/28/20 05:33 Ramiro Rods Not Reportable 10/28/20 05:33 Platelet Estimate Consistent w auto 10/28/20 05:33 Clumped Platelets Not Reportable 10/28/20 05:33 Plt Clumps, EDTA Not Reportable 10/28/20 05:33 Large Platelets Not Reportable 10/28/20 05:33 Giant Platelets Not Reportable 10/28/20 05:33 Platelet Satelliting Not Reportable 10/28/20 05:33 Plt Morphology Comment Not Reportable 10/28/20 05:33 RBC Morphology Not Reportable 10/28/20 05:33 Dimorphic RBCs Not Reportable 10/28/20 05:33 Polychromasia Not Reportable 10/28/20 05:33 Hypochromasia Not Reportable 10/28/20 05:33 Poikilocytosis Not Reportable 10/28/20 05:33 Anisocytosis 1+ 10/28/20 05:33 Microcytosis Not Reportable 10/28/20 05:33 Macrocytosis Not Reportable 10/28/20 05:33 Spherocytes Not Reportable 10/28/20 05:33 Pappenheimer Bodies Not Reportable 10/28/20 05:33 Sickle Cells Not Reportable 10/28/20 05:33 Target Cells Not Reportable 10/28/20 05:33 Tear Drop Cells Not Reportable 10/28/20 05:33 Ovalocytes Few 10/28/20 05:33 Helmet Cells Not Reportable 10/28/20 05:33 Villegas-Walker Bodies Not Reportable 10/28/20 05:33 [place] Rings Not Reportable 10/28/20 05:33 [place] Cells Not Reportable 10/28/20 05:33 Bite Cells Not Reportable 10/28/20 05:33 Crenated Cell Not Reportable 10/28/20 05:33 Elliptocytes Not Reportable 10/28/20 05:33 Acanthocytes (Spur) Not Reportable 10/28/20 05:33 Rouleaux Not Reportable 10/28/20 05:33 Hemoglobin C Crystals Not Reportable 10/28/20 05:33 Schistocytes Not Reportable 10/28/20 05:33 Malaria parasites Not Reportable 10/28/20 05:33 Toro Bodies Not Reportable 10/28/20 05:33 Hem Pathologist Commnt No 10/28/20 05:33 D-Dimer 1296.09 ng/mlDDU (0-234) H 10/27/20 21:49 Sodium 134 mmol/L (137-145) L 10/29/20 07:11 Potassium 4.5 mmol/L (3.6-5.0) 10/29/20 07:11 Chloride 97.9 mmol/L (98-107) L 10/29/20 07:11 Carbon Dioxide 27 mmol/L (22-30) 10/29/20 07:11 Anion Gap 14 mmol/L 10/29/20 07:11 BUN 23 mg/dL (9-20) H 10/29/20 07:11 Creatinine 0.9 mg/dL (0.8-1.3) 10/29/20 07:11 Estimated GFR > 60 ml/min 10/29/20 07:11 BUN/Creatinine Ratio 26 % 10/29/20 07:11 Glucose 224 mg/dL (75-100) H 10/29/20 07:11 Hemoglobin A1c 5.8 % (4-6) 10/29/20 04:53 Calcium 8.7 mg/dL (8.4-10.2) 10/29/20 07:11 Ferritin > 2000.0 ng/mL (30.0-300.0) H 10/27/20 21:49 Total Bilirubin 0.90 mg/dL (0.1-1.2) 10/29/20 07:11 Direct Bilirubin < 0.2 mg/dL (0-0.2) 10/27/20 21:49 Indirect Bilirubin 0.7 mg/dL 10/27/20 21:49 AST 71 units/L (5-40) H 10/29/20 07:11 ALT 49 units/L (7-56) 10/29/20 07:11 Alkaline Phosphatase 73 units/L (35-129) 10/29/20 07:11 Lactate Dehydrogenase 1964 units/L (91-180) H 10/27/20 21:49 Troponin T < 0.010 ng/mL (0.00-0.029) 10/27/20 22:20 C-Reactive Protein 7.40 mg/dL (0.00-1.30) H 10/27/20 21:49 NT-Pro-B Natriuret Pep 102.7 pg/mL (0-450) 10/29/20 07:11 Total Protein 7.5 g/dL (6.3-8.2) 10/29/20 07:11 Albumin 3.3 g/dL (3.9-5) L 10/29/20 07:11 Albumin/Globulin Ratio 0.8 % 10/29/20 07:11 Coronavirus (PCR) Positive (Negative) A 10/28/20 Unknown Microbiology: Microbiology 10/27/20 21:49 Peripheral/Venous Blood Culture - Preliminary NO GROWTH AFTER 24 HOURS 10/27/20 21:49 Peripheral/Venous Blood Culture - Preliminary NO GROWTH AFTER 24 HOURS [place]/IV: Voiding Method Toilet Active Medications - Current Medications Current Medications: Generic Name Dose Route Start Last Admin Trade Name Freq PRN Reason Stop Dose Admin Acetaminophen 650 mg 10/27/20 23:15 Acetaminophen 325 Mg Tab PO Q4H PRN Pain MILD(1-3)/Fever >100.5/MALIK Ascorbic Acid 500 mg 10/28/20 10:00 10/28/20 10:11 Ascorbic Acid 500 Mg Tab PO 500 mg QDAY CARMEL Administration Benzonatate 100 mg 10/28/20 10:00 10/29/20 05:47 Benzonatate 100 Mg Cap PO 100 mg Q8HR [facility] Administration Dexamethasone 6 mg 10/28/20 22:00 10/28/20 21:12 Dexamethasone 4 Mg/Ml Vial IV 6 mg DAILY@2200 [facility] Administration Enoxaparin Sodium 40 mg 10/28/20 22:00 10/28/20 21:10 Enoxaparin 40 Mg/0.4 Ml Inj SUB-Q 40 mg QDAY@2200 [facility] Administration Protocol Famotidine 20 mg 10/28/20 10:00 10/28/20 21:14 Famotidine 20 Mg Tab PO 20 mg BID [facility] Administration Hydralazine HCl 10 mg 10/27/20 22:48 Hydralazine 20 Mg/1 Ml Inj IV Q6H PRN htn Ceftriaxone Sodium 2 gm in 100 mls @ 200 mls/hr 10/28/20 22:00 10/29/20 02:52 Rocephin/Ns 2 Gm/100 Ml IV 200 mls/hr Q24H [facility] Infusion Protocol Azithromycin 500 mg in 250 mls @ 250 mls/hr 10/28/20 22:00 10/29/20 02:51 Zithromax/Ns IV Infused Q24H [facility] Infusion Protocol REMDESIVIR 100 mg/ Sodium 250 mls @ 500 mls/hr 10/29/20 21:00 Chloride IV 11/01/20 21:29 Q24HR@2100 [facility] Ondansetron HCl 4 mg 10/27/20 23:15 Ondansetron 4 Mg/2 Ml Inj IV Q8H PRN Nausea And Vomiting Sodium Chloride 10 ml 10/28/20 10:00 10/28/20 21:15 Sodium Chloride 0.9% 10 Ml Flush Syringe IV 10 ml BID [facility] Administration Sodium Chloride 10 ml 10/27/20 23:15 Sodium Chloride 0.9% 10 Ml Flush Syringe IV PRN PRN LINE FLUSH Sodium Chloride 50 ml 10/28/20 13:00 10/28/20 21:14 Sodium Chloride 0.9% 50 Ml Ivpb IV 10/31/20 21:01 50 ml Q24HR@2100 [facility] Administration Zinc Sulfate 220 mg 10/28/20 10:00 10/28/20 10:11 Zinc Sulfate 220 Mg Cap PO 220 mg QDAY [facility] Administration Nutrition/Malnutrition Assess - Dietary Evaluation Nutrition/Malnutrition Findings: Nutrition Notes Start: 10/28/20 10:35 Freq: Status: Active Protocol: Document 10/28/20 10:35 TANIYA (Rec: 10/28/20 10:36 TANIYA [id number]) Nutrition Notes Need for Assessment generated from: slimer Initial or Follow up Brief Note Subjective/Other Information Pt screened for skin risk, however, Pablo score is 21. Will assess upon further consult or LOS.
[2020-10-29] MEDS: FAMOTIDINE 20 MG TAB PO SCH ×2 (10:29→21:17)
[2020-10-29] MEDS: ASCORBIC ACID 500 MG TAB PO SCH (10:30)
[2020-10-29] MEDS ORDERED: FUROSEMIDE 20 MG/2 ML INJ IV ONE (10:30)
[2020-10-29] MEDS: ZINC SULFATE 220 MG CAP PO SCH (10:31)
--- NOTE | 2020-10-29 10:35 | Progress Note ---
Assessment and Plan 10/29/20: Same recs as yesterday. Will give lasix again today. Prone as tolerated daily and sleep prone at night Suggest ID consult for Remdesivier and consideration of Actemra Limit excess volume Lasix 20mg IV x1 today. Subjective Date of service: 10/29/20 Interval history: No acute events. Stable on 2 liters. Got lasix on yesterday. Objective Vital Signs - 12hr 10/29/20 05:09 Temperature 98.5 F Pulse Rate 86 Respiratory 20 Rate Blood Pressure 125/83 O2 Sat by Pulse 96 Oximetry CBC and BMP: 10/28/20 05:33 10/29/20 07:11 ABG, PT/INR, D-dimer: PT/INR, D-dimer D-Dimer 1296.09 ng/mlDDU (0-234) H 10/27/20 21:49 Abnormal lab findings: Abnormal Labs 10/27/20 10/27/20 10/27/20 21:49 21:49 21:49 RDW [place] % (Auto) 12.2 H Lymph # (Auto) 1.0 L [place] # (Auto) 0.9 H Seg Neutrophils % 72.9 H Lymphocytes % (Manual) Monocytes % (Manual) Lymphocytes # (Manual) D-Dimer Sodium 134 L Chloride 96.2 L BUN Glucose 166 H Calcium 8.3 L Ferritin AST 122 H ALT 58 H Lactate Dehydrogenase C-Reactive Protein Albumin 3.2 L Coronavirus (PCR) 10/27/20 10/27/20 10/27/20 21:49 21:49 21:49 RDW [place] % (Auto) Lymph # (Auto) [place] # (Auto) Seg Neutrophils % Lymphocytes % (Manual) Monocytes % (Manual) Lymphocytes # (Manual) D-Dimer 1296.09 H Sodium Chloride BUN Glucose 161 H Calcium Ferritin > 2000.0 H AST ALT Lactate Dehydrogenase 1964 H C-Reactive Protein 7.40 H Albumin Coronavirus (PCR) 10/28/20 10/28/20 10/28/20 05:33 05:33 14:03 RDW 13.0 L [place] % (Auto) Lymph # (Auto) [place] # (Auto) Seg Neutrophils % Lymphocytes % (Manual) 13.0 L Monocytes % (Manual) 11.0 H Lymphocytes # (Manual) 0.8 L D-Dimer Sodium 135 L 133 L Chloride 97.0 L 94.9 L BUN Glucose 222 H 237 H Calcium Ferritin AST 101 H ALT 58 H Lactate Dehydrogenase C-Reactive Protein Albumin 3.3 L Coronavirus (PCR) 10/28/20 10/29/20 Unknown 07:11 RDW [place] % (Auto) Lymph # (Auto) [place] # (Auto) Seg Neutrophils % Lymphocytes % (Manual) Monocytes % (Manual) Lymphocytes # (Manual) D-Dimer Sodium 134 L Chloride 97.9 L BUN 23 H Glucose 224 H Calcium Ferritin AST 71 H ALT Lactate Dehydrogenase C-Reactive Protein Albumin 3.3 L Coronavirus (PCR) Positive A
[2020-10-29] MEDS: DEXAMETHASONE 4 MG TAB PO SCH (11:37)
--- NOTE | 2020-10-29 14:33 | Progress Note ---
Assessment and Plan Cultures: Blood culture SARS CoV2 PCR Assessment: 44 years old male with no significant medical history, admitted on 10/27/2020 secondary to 4 days history of generalized malaise, subjective fever, decreased appetite, headaches, loss of smell and taste, shortness of breath and progressive dyspnea on exertion. Patient tested positive for COVID-19 4 days before admission: #Severe sepsis: Present on admission with tachycardia, high fever, hypoxia, likely due to bilateral pneumonia. #Severe COVID pneumonia: SARS-CoV-2 PCR positive as an outpatient. Chest x-ray with bilateral infiltrates. Inflammatory markers elevated. D-dimer 1296. Ferritin> 2000. LDH 1964. CRP 7.4. #Acute hypoxemic respiratory failure: O2 sats dropped to 89%, patient currently on 2 L nasal cannula #Elevated LFTs: from COVID initial AST 122. ALT 58. Recommendations: -Start Dexamethasone 6 mg IV/PO daily for 10 days -Start Remdesivir for 5 days (CrCl>30 mg/mL) -Monitor inflammatory markers - ferritin, Ddimer, CRP, LDH -Monitor liver function test on Remdesivir -Continue anticoagulation per System Protocol -Prone positioning as possible -Stopped empiric antibiotics due to normal procalcitonin. Alice Maya MD [facility] O: [phone] F: [phone] Subjective Date of service: 10/29/20 Interval history: Afebrile, normal whtie count. no acute change. Objective - Exam Narrative Exam: Physical exam deferred due to PPE conservation strategy. Please refer to primary team's note. - Constitutional Vitals: Vital Signs Temp Pulse Resp BP Pulse Ox 98.3 F 91 H 20 129/87 98 10/29/20 11:39 10/29/20 11:39 10/29/20 11:39 10/29/20 11:39 10/29/20 12:09 Temperature -Last 24 Hours Temperature 98.3 F Temperature 98.5 F Temperature 98.0 F - Labs CBC & Chem 7: 10/28/20 05:33 10/29/20 07:11 Labs: Abnormal lab results 10/28/20 10/28/20 10/28/20 Range/Units 05:33 14:03 Unknown Lymphocytes % (Manual) 13.0 L (13.4-35.0) % Monocytes % (Manual) 11.0 H (0.0-7.3) % Lymphocytes # (Manual) 0.8 L (1.2-5.4) K/mm3 Sodium 133 L (137-145) mmol/L Chloride 94.9 L (98-107) mmol/L BUN (9-20) mg/dL Glucose 237 H (75-100) mg/dL AST 101 H (5-40) units/L ALT 58 H (7-56) units/L Albumin 3.3 L (3.9-5) g/dL Coronavirus (PCR) Positive A (Negative) 10/29/20 Range/Units 07:11 Lymphocytes % (Manual) (13.4-35.0) % Monocytes % (Manual) (0.0-7.3) % Lymphocytes # (Manual) (1.2-5.4) K/mm3 Sodium 134 L (137-145) mmol/L Chloride 97.9 L (98-107) mmol/L BUN 23 H (9-20) mg/dL Glucose 224 H (75-100) mg/dL AST 71 H (5-40) units/L ALT (7-56) units/L Albumin 3.3 L (3.9-5) g/dL Coronavirus (PCR) (Negative)
[2020-10-29] MEDS: ENOXAPARIN 40 MG/0.4 ML INJ SUB-Q SCH (21:17)
[2020-10-29] MEDS: REMDESIVIR 100 MG in SODIUM CHLORIDE 0.9% 250ML 250 ML IV SCH (21:17)
[2020-10-29] MEDS: SODIUM CHLORIDE 0.9% 50 ML IVPB IV SCH (21:18)
[2020-10-30] MEDS: BENZONATATE 100 MG CAP PO SCH ×2 (05:33→21:26)
--- NOTE | 2020-10-30 08:56 | Progress Note ---
Assessment and Plan 10/30/20: Agree with ID. Hold on lasix today. Continue to prone as tolerated during the day and sleep prone at night. 10/29/20: Same recs as yesterday. Will give lasix again today. Prone as tolerated daily and sleep prone at night Suggest ID consult for Remdesivier and consideration of Actemra Limit excess volume Lasix 20mg IV x1 today. Subjective Date of service: 10/30/20 Interval history: No acute events. STable on 2 liters with good sats. Objective Vital Signs - 12hr 10/29/20 10/30/20 10/30/20 23:15 00:00 05:44 Temperature 98.6 F Pulse Rate 83 Blood Pressure 112/78 O2 Sat by Pulse 97 93 94 Oximetry 10/30/20 07:09 Temperature Pulse Rate Blood Pressure O2 Sat by Pulse 96 Oximetry CBC and BMP: 10/28/20 05:33 10/29/20 07:11 ABG, PT/INR, D-dimer: PT/INR, D-dimer D-Dimer 1296.09 ng/mlDDU (0-234) H 10/27/20 21:49 Abnormal lab findings: Abnormal Labs 10/27/20 10/27/20 10/27/20 21:49 21:49 21:49 RDW [place] % (Auto) 12.2 H Lymph # (Auto) 1.0 L [place] # (Auto) 0.9 H Seg Neutrophils % 72.9 H Lymphocytes % (Manual) Monocytes % (Manual) Lymphocytes # (Manual) D-Dimer Sodium 134 L Chloride 96.2 L BUN Glucose 166 H Calcium 8.3 L Ferritin AST 122 H ALT 58 H Lactate Dehydrogenase C-Reactive Protein Albumin 3.2 L Coronavirus (PCR) 10/27/20 10/27/20 10/27/20 21:49 21:49 21:49 RDW [place] % (Auto) Lymph # (Auto) [place] # (Auto) Seg Neutrophils % Lymphocytes % (Manual) Monocytes % (Manual) Lymphocytes # (Manual) D-Dimer 1296.09 H Sodium Chloride BUN Glucose 161 H Calcium Ferritin > 2000.0 H AST ALT Lactate Dehydrogenase 1964 H C-Reactive Protein 7.40 H Albumin Coronavirus (PCR) 10/28/20 10/28/20 10/28/20 05:33 05:33 14:03 RDW 13.0 L [place] % (Auto) Lymph # (Auto) [place] # (Auto) Seg Neutrophils % Lymphocytes % (Manual) 13.0 L Monocytes % (Manual) 11.0 H Lymphocytes # (Manual) 0.8 L D-Dimer Sodium 135 L 133 L Chloride 97.0 L 94.9 L BUN Glucose 222 H 237 H Calcium Ferritin AST 101 H ALT 58 H Lactate Dehydrogenase C-Reactive Protein Albumin 3.3 L Coronavirus (PCR) 10/28/20 10/29/20 Unknown 07:11 RDW [place] % (Auto) Lymph # (Auto) [place] # (Auto) Seg Neutrophils % Lymphocytes % (Manual) Monocytes % (Manual) Lymphocytes # (Manual) D-Dimer Sodium 134 L Chloride 97.9 L BUN 23 H Glucose 224 H Calcium Ferritin AST 71 H ALT Lactate Dehydrogenase C-Reactive Protein Albumin 3.3 L Coronavirus (PCR) Positive A
[2020-10-30 10:21] LABS: Alanine Aminotransferase 45 units/L (7-56); Albumin 3.4 g/dL (3.9-5); BUN/Creatinine Ratio 30; Blood Urea Nitrogen 27 mg/dL (9-20); Calcium 8.9 mg/dL (8.4-10.2); Hemolysis Index 19
--- NOTE | 2020-10-30 11:49 | Progress Note ---
Assessment and Plan Cultures: Blood culture SARS CoV2 PCR Assessment: 44 years old male with no significant medical history, admitted on 10/27/2020 secondary to 4 days history of generalized malaise, subjective fever, decreased appetite, headaches, loss of smell and taste, shortness of breath and progressive dyspnea on exertion. Patient tested positive for COVID-19 4 days before admission: #Severe sepsis: Present on admission with tachycardia, high fever, hypoxia, likely due to bilateral pneumonia. #Severe COVID pneumonia: SARS-CoV-2 PCR positive as an outpatient. Chest x-ray with bilateral infiltrates. Inflammatory markers elevated. D-dimer 1296. Ferritin> 2000. LDH 1964. CRP 7.4. #Acute hypoxemic respiratory failure: O2 sats dropped to 89%, patient currently on 1 L nasal cannula #Elevated LFTs: from COVID initial AST 122. ALT 58. Recommendations: -Start Dexamethasone 6 mg IV/PO daily for 10 days -Start Remdesivir for 5 days (CrCl>30 mg/mL) -Monitor inflammatory markers - ferritin, Ddimer, CRP, LDH -Monitor liver function test on Remdesivir -Continue anticoagulation per System Protocol -Prone positioning as possible Alice Maya MD [facility] ([facility] O: [phone] F: [phone] Subjective Date of service: 10/30/20 Interval history: Afebrile, normal white count. Currently on 1 L nasal cannula Objective - Exam Narrative Exam: Physical exam deferred due to PPE conservation strategy. Please refer to primary team's note. - Constitutional Vitals: Vital Signs Temp Pulse Resp BP Pulse Ox 98.6 F 83 20 112/78 97 10/30/20 05:44 10/30/20 05:44 10/29/20 20:29 10/30/20 05:44 10/30/20 09:24 Temperature -Last 24 Hours Temperature 98.6 F Temperature 98.8 F Temperature 97.7 F - Labs CBC & Chem 7: 10/28/20 05:33 10/30/20 07:25 Labs: Abnormal lab results 10/30/20 10/30/20 Range/Units 07:25 07:25 D-Dimer 415.49 H (0-234) ng/mlDDU Sodium 136 L (137-145) mmol/L BUN 27 H (9-20) mg/dL Glucose 207 H (75-100) mg/dL AST 47 H (5-40) units/L Albumin 3.4 L (3.9-5) g/dL
--- NOTE | 2020-10-30 14:51 | Progress Note ---
Assessment and Plan --Acute hypoxic respiratory failure Due to COVID-19 pneumonia, continue oxygen supplementation --COVID-19 pneumonia Continue oxygen supplementation Ceftriaxone and azithromycin discontinued as procalcitonin level was normal Continue dexamethasone for total 10 days Remdesivir for total 5 days Trend inflammatory markers Proning as much as possible DVT prophylaxis per facility protocol Pulmonology and ID following --Obesity dietary and exercise regimen when clinically more stable as outpatient --DVT prophylaxis-Lovenox Brief history: 44-year-old male with no significant past medical history was brought to the emergency room with shortness of breath, fever, decreased appetite and headache for the last 1 week. Patient was tested positive for Covid 4 days ago. For the last 3 - 4 days patients shortness of breath has been getting worse particularly on exertion. Patient did not take the Covid vaccine. Due to persisting symptoms, he presented to the ED for further evaluation. Here in the emergency room he was found to have a hypoxic. Chest xray showed bilateral infiltrates. He was started on antibiotics and dexamethasone and admitted for further management. Daily clinical course: 10/28. Patient seen and examined at bedside. Comfortable at rest but gets dyspneic with ambulation. On 3L oxygen. Ordered incentive spirometer. Advised proning as much as possible. Will consult pulmonary. 10/29. He feels just about the same. Remains on oxygen. Pulmonology and ID following. Awaiting procalcitonin. Continue IV antibiotics and dexamethasone. On remdesivir day 2. 10/30: Patient remains supplemental O2 only 1 L today. Remdesivir day 3 today, continue dexamethasone. Continue to follow inflammatory markers. Wean FiO2. Assess for home O2 requirement. Subjective Date of service: 10/30/20 Interval history: Patient seen and examined. Medical records and medication list reviewed. No acute event overnight noted by the RN. Patient denies any chest pain complains of difficulty breathing on exertion. Patient is tolerating diet but does not have good appetite. Discussed plan of care at bedside with patient. Objective - Exam Narrative Exam: Limited physical exam due to COVID-19 pandemic to minimize transmission of the disease and to preserve PPE. Vital reviewed and stable. GENERAL: well-developed well-nourished -[place] male lying on bed appeared to be in no discomfort. HEENT: Normocephalic. Atraumatic. NECK: Supple. CHEST/LUNGS: breathing nonlabored. HEART/CARDIOVASCULAR: Heart rate stable on telemetry ABDOMEN: Visibly not distended SKIN: There is no rash NEURO: No focal motor deficit. Follows command. MUSCULOSKELETAL: No joint effusion EXTRIMITY: No swelling, no cyanosis or clubbing. PSYCH: Cooperative. - Constitutional Vitals: Vital Signs - 12hr 10/30/20 10/30/20 10/30/20 05:44 07:09 09:24 Temperature 98.6 F Pulse Rate 83 Blood Pressure 112/78 O2 Sat by Pulse 94 96 97 Oximetry - Labs CBC & Chem 7: 10/28/20 05:33 10/30/20 07:25 Labs: Abnormal lab results 10/30/20 10/30/20 10/30/20 Range/Units 07:25 07:25 07:25 D-Dimer 415.49 H (0-234) ng/mlDDU Sodium 136 L (137-145) mmol/L BUN 27 H (9-20) mg/dL Glucose 207 H (75-100) mg/dL Ferritin 93942.0 H (30.0-300.0) ng/mL AST 47 H (5-40) units/L Albumin 3.4 L (3.9-5) g/dL HEART Score - HEART Score Troponin: Troponin T < 0.010 ng/mL (0.00-0.029) 10/27/20 22:20
[2020-10-30] MEDS: FAMOTIDINE 20 MG TAB PO SCH ×2 (17:36→21:26)
[2020-10-30] MEDS: DEXAMETHASONE 4 MG TAB PO SCH (17:36)
[2020-10-30] MEDS: ASCORBIC ACID 500 MG TAB PO SCH (17:37)
[2020-10-30] MEDS: ZINC SULFATE 220 MG CAP PO SCH (17:37)
[2020-10-30] MEDS: REMDESIVIR 100 MG in SODIUM CHLORIDE 0.9% 250ML 250 ML IV SCH (21:26)
[2020-10-30] MEDS: ENOXAPARIN 40 MG/0.4 ML INJ SUB-Q SCH (21:26)
[2020-10-30] MEDS: SODIUM CHLORIDE 0.9% 50 ML IVPB IV SCH (22:00)
[2020-10-31] MEDS: BENZONATATE 100 MG CAP PO SCH ×3 (05:18→21:24)
[2020-10-31 06:53] LABS: Alanine Aminotransferase 47 units/L (7-56); Albumin 3.1 g/dL (3.9-5); BUN/Creatinine Ratio 27; Blood Urea Nitrogen 24 mg/dL (9-20); Calcium 8.7 mg/dL (8.4-10.2); Hemolysis Index 2
--- NOTE | 2020-10-31 09:28 | XRay Report ---
CHEST 1 VIEW INDICATION / CLINICAL INFORMATION: SOB. COMPARISON: Chest radiograph 10/27/2020 FINDINGS: SUPPORT DEVICES: None. HEART / MEDIASTINUM: Stable. LUNGS / PLEURA: Mild to moderate patchy bilateral airspace opacities are not significantly changed fr om prior examination. No pleural effusion. No pneumothorax. ADDITIONAL FINDINGS: No significant additional findings. IMPRESSION: 1. No significant change of patchy bilateral airspace opacities. Signer Name: Yasmin Kirby MD Signed: 10/31/2020 9:24 AM Workstation Name: [employer]
[2020-10-31] MEDS: ZINC SULFATE 220 MG CAP PO SCH (09:32)
[2020-10-31] MEDS: FAMOTIDINE 20 MG TAB PO SCH ×2 (09:32→21:24)
[2020-10-31] MEDS: ASCORBIC ACID 500 MG TAB PO SCH (09:32)
[2020-10-31] MEDS: DEXAMETHASONE 4 MG TAB PO SCH (09:32)
--- NOTE | 2020-10-31 14:46 | Progress Note ---
Assessment and Plan --Acute hypoxic respiratory failure Due to COVID-19 pneumonia, continue oxygen supplementation --COVID-19 pneumonia Continue oxygen supplementation Ceftriaxone and azithromycin discontinued as procalcitonin level was normal Continue dexamethasone for total 10 days Remdesivir for total 5 days Trend inflammatory markers Proning as much as possible DVT prophylaxis per facility protocol Pulmonology and ID following --Obesity dietary and exercise regimen when clinically more stable as outpatient --DVT prophylaxis-Lovenox Brief history: 44-year-old male with no significant past medical history was brought to the emergency room with shortness of breath, fever, decreased appetite and headache for the last 1 week. Patient was tested positive for Covid 4 days ago. For the last 3 - 4 days patients shortness of breath has been getting worse particularly on exertion. Patient did not take the Covid vaccine. Due to persisting symptoms, he presented to the ED for further evaluation. Here in the emergency room he was found to have a hypoxic. Chest xray showed bilateral infiltrates. He was started on antibiotics and dexamethasone and admitted for further management. Daily clinical course: 10/28. Patient seen and examined at bedside. Comfortable at rest but gets dyspneic with ambulation. On 3L oxygen. Ordered incentive spirometer. Advised proning as much as possible. Will consult pulmonary. 10/29. He feels just about the same. Remains on oxygen. Pulmonology and ID following. Awaiting procalcitonin. Continue IV antibiotics and dexamethasone. On remdesivir day 2. 10/30: Patient remains supplemental O2 only 1 L today. Remdesivir day 3 today, continue dexamethasone. Continue to follow inflammatory markers. Wean FiO2. Assess for home O2 requirement. 10/31: Oxygen requirement has been increased today, remdesivir day 4, continue dexamethasone. Will need home oxygen for discharge. Wean off FiO2 as tolerated. Continue to follow inflammatory markers Subjective Date of service: 10/31/20 Interval history: Patient seen and examined. Medical records and medication list reviewed. No acute event overnight noted by the RN. Patient denies any chest pain but complains of difficulty breathing on exertion. Patient is tolerating diet but does not have good appetite. He placed on 15L nasal cannula O2 today as he was desating Discussed plan of care at bedside with patient. Objective - Exam Narrative Exam: Limited physical exam due to COVID-19 pandemic to minimize transmission of the disease and to preserve PPE. Vital reviewed and stable. GENERAL: well-developed well-nourished -[place] male lying on bed appeared to be in no discomfort. HEENT: Normocephalic. Atraumatic. NECK: Supple. CHEST/LUNGS: breathing nonlabored. HEART/CARDIOVASCULAR: Heart rate stable on telemetry ABDOMEN: Visibly not distended SKIN: There is no rash NEURO: No focal motor deficit. Follows command. MUSCULOSKELETAL: No joint effusion EXTRIMITY: No swelling, no cyanosis or clubbing. PSYCH: Cooperative. - Constitutional Vitals: Vital Signs - 12hr 10/31/20 10/31/20 04:34 08:55 Temperature 98.7 F Pulse Rate 91 H Respiratory 18 Rate Blood Pressure 103/73 O2 Sat by Pulse 94 98 Oximetry - Labs CBC & Chem 7: 10/28/20 05:33 10/31/20 05:57 Labs: Abnormal lab results 10/31/20 Range/Units 05:57 Sodium 136 L (137-145) mmol/L BUN 24 H (9-20) mg/dL Glucose 179 H (75-100) mg/dL Albumin 3.1 L (3.9-5) g/dL HEART Score - HEART Score Troponin: Troponin T < 0.010 ng/mL (0.00-0.029) 10/27/20 22:20
--- NOTE | 2020-10-31 15:12 | Progress Note ---
Assessment and Plan 10/31/20: Will give lasix today given increase in oxygen. Order Incentive ra. Wean as tolerated. Prone day and night. 10/30/20: Agree with ID. Hold on lasix today. Continue to prone as tolerated during the day and sleep prone at night. 10/29/20: Same recs as yesterday. Will give lasix again today. Prone as tolerated daily and sleep prone at night Suggest ID consult for Remdesivier and consideration of Actemra Limit excess volume Lasix 20mg IV x1 today. Subjective Date of service: 10/31/20 Interval history: Oxygen requirement increased dramatically this am. Now on 15 liters [place]. No changes clinically though. Objective Vital Signs - 12hr 10/31/20 10/31/20 04:34 08:55 Temperature 98.7 F Pulse Rate 91 H Respiratory 18 Rate Blood Pressure 103/73 O2 Sat by Pulse 94 98 Oximetry CBC and BMP: 10/28/20 05:33 10/31/20 05:57 ABG, PT/INR, D-dimer: PT/INR, D-dimer D-Dimer 415.49 ng/mlDDU (0-234) H 10/30/20 07:25 Abnormal lab findings: Abnormal Labs 10/27/20 10/27/20 10/27/20 21:49 21:49 21:49 RDW [place] % (Auto) 12.2 H Lymph # (Auto) 1.0 L [place] # (Auto) 0.9 H Seg Neutrophils % 72.9 H Lymphocytes % (Manual) Monocytes % (Manual) Lymphocytes # (Manual) D-Dimer Sodium 134 L Chloride 96.2 L BUN Glucose 166 H Calcium 8.3 L Ferritin AST 122 H ALT 58 H Lactate Dehydrogenase C-Reactive Protein Albumin 3.2 L Coronavirus (PCR) 10/27/20 10/27/20 10/27/20 21:49 21:49 21:49 RDW [place] % (Auto) Lymph # (Auto) [place] # (Auto) Seg Neutrophils % Lymphocytes % (Manual) Monocytes % (Manual) Lymphocytes # (Manual) D-Dimer 1296.09 H Sodium Chloride BUN Glucose 161 H Calcium Ferritin > 2000.0 H AST ALT Lactate Dehydrogenase 1964 H C-Reactive Protein 7.40 H Albumin Coronavirus (PCR) 10/28/20 10/28/20 10/28/20 05:33 05:33 14:03 RDW 13.0 L [place] % (Auto) Lymph # (Auto) [place] # (Auto) Seg Neutrophils % Lymphocytes % (Manual) 13.0 L Monocytes % (Manual) 11.0 H Lymphocytes # (Manual) 0.8 L D-Dimer Sodium 135 L 133 L Chloride 97.0 L 94.9 L BUN Glucose 222 H 237 H Calcium Ferritin AST 101 H ALT 58 H Lactate Dehydrogenase C-Reactive Protein Albumin 3.3 L Coronavirus (PCR) 10/28/20 10/29/20 10/30/20 Unknown 07:11 07:25 RDW [place] % (Auto) Lymph # (Auto) [place] # (Auto) Seg Neutrophils % Lymphocytes % (Manual) Monocytes % (Manual) Lymphocytes # (Manual) D-Dimer Sodium 134 L 136 L Chloride 97.9 L BUN 23 H 27 H Glucose 224 H 207 H Calcium Ferritin AST 71 H 47 H ALT Lactate Dehydrogenase C-Reactive Protein Albumin 3.3 L 3.4 L Coronavirus (PCR) Positive A 10/30/20 10/30/20 10/31/20 07:25 07:25 05:57 RDW [place] % (Auto) Lymph # (Auto) [place] # (Auto) Seg Neutrophils % Lymphocytes % (Manual) Monocytes % (Manual) Lymphocytes # (Manual) D-Dimer 415.49 H Sodium 136 L Chloride BUN 24 H Glucose 179 H Calcium Ferritin 82276.0 H AST ALT Lactate Dehydrogenase C-Reactive Protein Albumin 3.1 L Coronavirus (PCR)
[2020-10-31] MEDS ORDERED: FUROSEMIDE 20 MG/2 ML INJ IV NR (15:30)
--- NOTE | 2020-10-31 17:01 | Progress Note ---
Assessment and Plan Cultures: Blood culture SARS CoV2 PCR Assessment: 44 years old male with no significant medical history, admitted on 10/27/2020 secondary to 4 days history of generalized malaise, subjective fever, decreased appetite, headaches, loss of smell and taste, shortness of breath and progressive dyspnea on exertion. Patient tested positive for COVID-19 4 days before admission: #Severe sepsis: Present on admission with tachycardia, high fever, hypoxia, likely due to bilateral pneumonia. #Severe COVID pneumonia: SARS-CoV-2 PCR positive as an outpatient. Chest x-ray with bilateral infiltrates. Inflammatory markers elevated. D-dimer 1296. Ferritin> 2000. LDH 1964. CRP 7.4. #Acute hypoxemic respiratory failure: O2 sats dropped to 89%, patient currently on 1 L nasal cannula #Elevated LFTs: from COVID initial AST 122. ALT 58. Recommendations: -Start Dexamethasone 6 mg IV/PO daily for 10 days -Start Remdesivir for 5 days (CrCl>30 mg/mL).D 4 of 5 -Monitor inflammatory markers - ferritin, Ddimer, CRP, LDH -Monitor liver function test on Remdesivir -Continue anticoagulation per System Protocol -Prone positioning as possible Alice Maya MD [facility] ([facility] O: [phone] F: [phone] Subjective Date of service: 10/31/20 Interval history: Afebrile, no acute change. Currently on high flow nasal cannula. Imaging personally reviewed: Chest x-ray: No change, persistent bilateral patchy airspace opacities. Objective - Exam Narrative Exam: Physical exam deferred to reduce risk of transmission of COVID-19. Please refer to primary team's note. - Constitutional Vitals: Vital Signs Temp Pulse Resp BP Pulse Ox 98 F 99 H 18 112/76 98 10/31/20 12:50 10/31/20 12:50 10/31/20 12:50 10/31/20 12:50 10/31/20 15:42 Temperature -Last 24 Hours Temperature 98 F Temperature 98.7 F Temperature 98.0 F - Labs CBC & Chem 7: 10/28/20 05:33 10/31/20 05:57 Labs: Abnormal lab results 10/31/20 Range/Units 05:57 Sodium 136 L (137-145) mmol/L BUN 24 H (9-20) mg/dL Glucose 179 H (75-100) mg/dL Albumin 3.1 L (3.9-5) g/dL
[2020-10-31] MEDS: ENOXAPARIN 40 MG/0.4 ML INJ SUB-Q SCH (21:24)
[2020-10-31] MEDS: REMDESIVIR 100 MG in SODIUM CHLORIDE 0.9% 250ML 250 ML IV SCH (21:24)
[2020-10-31] MEDS: SODIUM CHLORIDE 0.9% 50 ML IVPB IV SCH (21:55)
[2020-11-01 02:55] LABS: Hematocrit 41.5 % (35.5-45.6); Hemoglobin 13.4 gm/dl (11.8-15.2); Mean Corpuscular HGB Conc 32 % (32-34); Mean Corpuscular Volume 89 fl (84-94); Platelet Count 393 K/mm3 (140-440); Red Blood Count 4.66 M/mm3 (3.65-5.03)
[2020-11-01 02:57] LABS: Basophils % (Auto) 0.1 % (0.0-1.8); Lymphocytes # (Auto) 1.3 K/mm3 (1.2-5.4); Lymphocytes % (Auto) 8.5 % (13.4-35.0); Monocytes # (Auto) 1.5 K/mm3 (0.0-0.8)
[2020-11-01 03:13] LABS: BUN/Creatinine Ratio 26; Blood Urea Nitrogen 23 mg/dL (9-20); Calcium 8.5 mg/dL (8.4-10.2); Hemolysis Index 10
[2020-11-01 04:50] LABS: C-Reactive Protein 0.5 mg/dL (0.00-1.30)
[2020-11-01] MEDS: BENZONATATE 100 MG CAP PO SCH ×3 (05:27→15:30)
[2020-11-01] MEDS ORDERED: APIXABAN 2.5 MG TAB PO SCH (10:00)
[2020-11-01] MEDS: FAMOTIDINE 20 MG TAB PO SCH (10:32)
[2020-11-01] MEDS: ZINC SULFATE 220 MG CAP PO SCH (10:32)
[2020-11-01] MEDS: ASCORBIC ACID 500 MG TAB PO SCH (10:32)
[2020-11-01] MEDS: DEXAMETHASONE 4 MG TAB PO SCH (10:32)
--- NOTE | 2020-11-01 10:45 | Progress Note ---
Assessment and Plan 11/01/20: Lasix again today. Prone. Continue to wean FiO2. If remains stable today, suggest walk test tomorrow. Possible home over the weekend. 10/31/20: Will give lasix today given increase in oxygen. Order Incentive ra. Wean as tolerated. Prone day and night. 10/30/20: Agree with ID. Hold on lasix today. Continue to prone as tolerated during the day and sleep prone at night. 10/29/20: Same recs as yesterday. Will give lasix again today. Prone as tolerated daily and sleep prone at night Suggest ID consult for Remdesivier and consideration of Actemra Limit excess volume Lasix 20mg IV x1 today. Subjective Date of service: 11/01/20 Interval history: Down to 3 liters now with good sats. Objective Vital Signs - 12hr 11/01/20 04:32 Temperature 98.6 F Pulse Rate 80 Respiratory 18 Rate Blood Pressure 109/76 O2 Sat by Pulse 98 Oximetry CBC and BMP: 11/01/20 02:03 11/01/20 02:03 ABG, PT/INR, D-dimer: PT/INR, D-dimer D-Dimer 733.57 ng/mlDDU (0-234) H 11/01/20 02:03 Abnormal lab findings: Abnormal Labs 10/27/20 10/27/20 10/27/20 21:49 21:49 21:49 WBC RDW Lymph % (Auto) [place] % (Auto) 12.2 H Lymph # (Auto) 1.0 L [place] # (Auto) 0.9 H Seg Neutrophils % 72.9 H Lymphocytes % (Manual) Monocytes % (Manual) Seg Neutrophils # Lymphocytes # (Manual) D-Dimer Sodium 134 L Chloride 96.2 L BUN Glucose 166 H Calcium 8.3 L Ferritin AST 122 H ALT 58 H Lactate Dehydrogenase C-Reactive Protein Albumin 3.2 L Coronavirus (PCR) 10/27/20 10/27/20 10/27/20 21:49 21:49 21:49 WBC RDW Lymph % (Auto) [place] % (Auto) Lymph # (Auto) [place] # (Auto) Seg Neutrophils % Lymphocytes % (Manual) Monocytes % (Manual) Seg Neutrophils # Lymphocytes # (Manual) D-Dimer 1296.09 H Sodium Chloride BUN Glucose 161 H Calcium Ferritin > 2000.0 H AST ALT Lactate Dehydrogenase 1964 H C-Reactive Protein 7.40 H Albumin Coronavirus (PCR) 10/28/20 10/28/20 10/28/20 05:33 05:33 14:03 WBC RDW 13.0 L Lymph % (Auto) [place] % (Auto) Lymph # (Auto) [place] # (Auto) Seg Neutrophils % Lymphocytes % (Manual) 13.0 L Monocytes % (Manual) 11.0 H Seg Neutrophils # Lymphocytes # (Manual) 0.8 L D-Dimer Sodium 135 L 133 L Chloride 97.0 L 94.9 L BUN Glucose 222 H 237 H Calcium Ferritin AST 101 H ALT 58 H Lactate Dehydrogenase C-Reactive Protein Albumin 3.3 L Coronavirus (PCR) 10/28/20 10/29/20 10/30/20 Unknown 07:11 07:25 WBC RDW Lymph % (Auto) [place] % (Auto) Lymph # (Auto) [place] # (Auto) Seg Neutrophils % Lymphocytes % (Manual) Monocytes % (Manual) Seg Neutrophils # Lymphocytes # (Manual) D-Dimer Sodium 134 L 136 L Chloride 97.9 L BUN 23 H 27 H Glucose 224 H 207 H Calcium Ferritin AST 71 H 47 H ALT Lactate Dehydrogenase C-Reactive Protein Albumin 3.3 L 3.4 L Coronavirus (PCR) Positive A 10/30/20 10/30/20 10/31/20 07:25 07:25 05:57 WBC RDW Lymph % (Auto) [place] % (Auto) Lymph # (Auto) [place] # (Auto) Seg Neutrophils % Lymphocytes % (Manual) Monocytes % (Manual) Seg Neutrophils # Lymphocytes # (Manual) D-Dimer 415.49 H Sodium 136 L Chloride BUN 24 H Glucose 179 H Calcium Ferritin 03564.0 H AST ALT Lactate Dehydrogenase C-Reactive Protein Albumin 3.1 L Coronavirus (PCR) 11/01/20 11/01/20 11/01/20 02:03 02:03 02:03 WBC RDW Lymph % (Auto) [place] % (Auto) Lymph # (Auto) [place] # (Auto) Seg Neutrophils % Lymphocytes % (Manual) Monocytes % (Manual) Seg Neutrophils # Lymphocytes # (Manual) D-Dimer 733.57 H Sodium Chloride BUN Glucose Calcium Ferritin 5249.0 H AST ALT Lactate Dehydrogenase 866 H C-Reactive Protein Albumin Coronavirus (PCR) 11/01/20 11/01/20 02:03 02:03 WBC 15.1 H RDW 13.0 L Lymph % (Auto) 8.5 L [place] % (Auto) 10.0 H Lymph # (Auto) [place] # (Auto) 1.5 H Seg Neutrophils % 81.4 H Lymphocytes % (Manual) Monocytes % (Manual) Seg Neutrophils # 12.3 H Lymphocytes # (Manual) D-Dimer Sodium 134 L Chloride BUN 23 H Glucose 233 H Calcium Ferritin AST ALT Lactate Dehydrogenase C-Reactive Protein Albumin Coronavirus (PCR)
[2020-11-01] MEDS ORDERED: FUROSEMIDE 20 MG/2 ML INJ IV SCH (11:00)
--- NOTE | 2020-11-01 11:29 | Electrocardiograph Report ---
[facility] Test Date: 2020-10-27 Test Time: 21:14:33 Pat Name: TOVA GRAVES Department: Room: A357 Gender: M Cloth Cutter: JARETT : 1975 Requested By: LEMUEL CAMPBELL Order Number: [id number] Reading MD: Thang Winter Measurements Intervals [place] Rate: 112 P: 53 MT: 173 QRS: 72 QRSD: 103 T: -3 QT: 326 QTc: 447 Interpretive Statements Sinus tachycardia Borderline ST elevation, anterior leads No previous ECG available for comparison Electronically Signed On 11-01-2020 11:28:41 EDT by Thang Winter
[2020-11-01 13:25] LABS: Hematocrit 42.4 % (35.5-45.6); Hemoglobin 13.9 gm/dl (11.8-15.2); Mean Corpuscular HGB Conc 33 % (32-34); Mean Corpuscular Volume 90 fl (84-94); Platelet Count 428 K/mm3 (140-440); Red Blood Count 4.73 M/mm3 (3.65-5.03)
[2020-11-01 13:31] LABS: INR 1.02 (0.87-1.13); Partial Thromboplastin Time 20.6 Sec. (24.2-36.6)
--- NOTE | 2020-11-01 13:48 | Discharge Summary ---
Providers - Providers Date of Admission: 10/28/20 01:14 Date of discharge: 11/01/20 Attending physician: MIGUEL MERCADO 10/27/20 22:45 Consult to Physician [CONS] Routine Comment: Consulting Provider: WINSTON SANFORD Physician Instructions: Reason For Exam: covid 10/28/20 08:23 Consult to Physician [CONS] Routine Comment: Consulting Provider: JAYLYN DUCKWORTH Physician Instructions: Reason For Exam: Acute respiratory failure 2/2 COVID PNA Primary care physician: CAUL PULLER Hospitalization Condition: Stable Hospital course: 44-year-old male with no significant past medical history was brought to the emergency room with shortness of breath, fever, decreased appetite and headache for the last 1 week. Patient was tested positive for Covid 4 days ago. For the last 3 - 4 days patients shortness of breath has been getting worse particularly on exertion. Patient did not take the Covid vaccine. Due to persisting symptoms, he presented to the ED for further evaluation. Here in the emergency room he was found to have a hypoxic. Chest xray showed bilateral infiltrates. He was started on antibiotics and dexamethasone and admitted for further management. -Placed on dexamethasone for total 10 days and remdesivir total 5 days -Antibiotic was not required as procalcitonin level was normal - Placed on Droplet/contact isolation, continuous SPO2 monitoring, supplemental oxygen as needed, pulmonary hygiene, prone to sleep, Vitamin C, vitamin D, zinc -Patient was given anticoagulation per protocol, Lasix IV as needed to prevent pulmonary edema -Infectious disease and pulmonary critical care was consulted. Assessed for Home O2 requirement. -Patient's symptoms improved with current Mx and was assessed for home O2 requirement. - Patient was then discharged home in stable condition with outpt followup. Daily clinical course: 10/28. Patient seen and examined at bedside. Comfortable at rest but gets dyspneic with ambulation. On 3L oxygen. Ordered incentive spirometer. Advised proning as much as possible. Will consult pulmonary. 10/29. He feels just about the same. Remains on oxygen. Pulmonology and ID following. Awaiting procalcitonin. Continue IV antibiotics and dexamethasone. On remdesivir day 2. 10/30: Patient remains supplemental O2 only 1 L today. Remdesivir day 3 today, continue dexamethasone. Continue to follow inflammatory markers. Wean FiO2. Assess for home O2 requirement. 10/31: Oxygen requirement has been increased today, remdesivir day 4, continue dexamethasone. Will need home oxygen for discharge. Wean off FiO2 as tolerated. Continue to follow inflammatory markers 11/01: Last day of remdesivir today. Patient will continue dexamethasone total 10 days. Assess for home O2 and his O2 sat was normal on resting and ambulation. Patient will be discharged home today with outpatient follow-up. Patient noted to have slightly elevated D-dimer than prior, patient started on Eliquis 2.5 mg twice daily. Discharge plan and management was thoroughly discussed with the patient and he verbalized understanding. Disposition: DC-01 TO HOME OR SELFCARE Final Discharge Diagnosis (Prints w/discharge instructions): Acute hypoxic respiratory failure resolved, COVID-19 pneumonia, obesity, hyperglycemia likely from steroid, mild hyponatremia. Time spent for discharge: 34 minutes Core Measure Documentation - Palliative Care Palliative Care/ Comfort Measures: Not Applicable - Core Measures Any of the following diagnoses?: none Exam - Physical Exam Narrative exam: Limited physical exam due to COVID-19 pandemic to minimize transmission of the disease and to preserve PPE. Vital reviewed and stable. GENERAL: well-developed well-nourished -[place] male lying on bed appeared to be in no discomfort. HEENT: Normocephalic. Atraumatic. NECK: Supple. CHEST/LUNGS: breathing nonlabored. HEART/CARDIOVASCULAR: Heart rate stable on telemetry ABDOMEN: Visibly not distended SKIN: There is no rash NEURO: No focal motor deficit. Follows command. MUSCULOSKELETAL: No joint effusion EXTRIMITY: No swelling, no cyanosis or clubbing. PSYCH: Cooperative. - Constitutional Vitals: Temp Pulse Resp BP Pulse Ox 98.6 F 80 18 109/76 98 11/01/20 04:32 11/01/20 04:32 11/01/20 04:32 11/01/20 04:32 11/01/20 04:32 Plan Activity: advance as tolerated Weight Bearing Status: Weight Bear as Tolerated Diet: low carbohydrate Additional Instructions: Follow-up with your PCP in 1 week Follow up with: PRIMARY MD MALI [Primary Care Provider] - 3-5 Days Prescriptions: dexAMETHasone [Decadron] 6 mg PO DAILY #4 tablet Apixaban [Eliquis] 2.5 mg PO Q12HR #14 tablet Ascorbic Acid [Vitamin C] 500 mg PO QDAY #7 tablet Cholecalciferol (Vitamin D3) [Vitamin D3] 5,000 unit PO DAILY #7 tablet Zinc Sulfate 220 mg PO QDAY #7 capsule
[2020-11-01] MEDS ORDERED: CHOLECALCIFEROL (VIT D3) 5,000 UNIT TAB PO SCH (14:00)
--- NOTE | 2020-11-01 15:27 | Progress Note ---
Assessment and Plan Cultures: Blood culture SARS CoV2 PCR Assessment: 44 years old male with no significant medical history, admitted on 10/27/2020 secondary to 4 days history of generalized malaise, subjective fever, decreased appetite, headaches, loss of smell and taste, shortness of breath and progressive dyspnea on exertion. Patient tested positive for COVID-19 4 days before admission: #Severe sepsis: Present on admission with tachycardia, high fever, hypoxia, likely due to bilateral pneumonia. #Severe COVID pneumonia: SARS-CoV-2 PCR positive as an outpatient. Chest x-ray with bilateral infiltrates. Inflammatory markers elevated. D-dimer 1296. Ferritin> 2000. LDH 1964. CRP 7.4. #Acute hypoxemic respiratory failure: O2 sats dropped to 89%, patient currently on 1 L nasal cannula #Elevated LFTs: from COVID initial AST 122. ALT 58. Recommendations: -Start Dexamethasone 6 mg IV/PO daily for 10 days -Start Remdesivir for 5 days (CrCl>30 mg/mL). D5 of 5 -Monitor inflammatory markers - ferritin, Ddimer, CRP, LDH -Monitor liver function test on Remdesivir -Continue anticoagulation per System Protocol -Prone positioning as possible Alice Maya MD [facility] O: [phone] F: [phone] Subjective Date of service: 11/01/20 Interval history: Afebrile, white count 14.3. Cultures no growth to date. On 2L nasal cannula. Objective - Exam Narrative Exam: Physical exam deferred to reduce risk of transmission of COVID-19. Please refer to primary team's note. - Constitutional Vitals: Vital Signs Temp Pulse Resp BP Pulse Ox 98.7 F 92 H 18 112/79 98 11/01/20 11:42 11/01/20 11:42 11/01/20 11:42 11/01/20 11:42 11/01/20 14:00 Temperature -Last 24 Hours Temperature 98.7 F Temperature 98.6 F Temperature 98.6 F Temperature 98.3 F - Labs CBC & Chem 7: 11/01/20 12:58 11/01/20 12:58 Labs: Abnormal lab results 11/01/20 11/01/20 11/01/20 Range/Units 02:03 02:03 02:03 WBC (4.5-11.0) K/mm3 RDW (13.2-15.2) % Lymph % (Auto) (13.4-35.0) % [place] % (Auto) (0.0-7.3) % [place] # (Auto) (0.0-0.8) K/mm3 Seg Neutrophils % (40.0-70.0) % Seg Neutrophils # (1.8-7.7) K/mm3 APTT (24.2-36.6) Sec. D-Dimer 733.57 H (0-234) ng/mlDDU Sodium (137-145) mmol/L BUN (9-20) mg/dL Glucose (75-100) mg/dL Ferritin 5249.0 H (30.0-300.0) ng/mL Lactate Dehydrogenase 866 H (91-180) units/L 11/01/20 11/01/20 11/01/20 Range/Units 02:03 02:03 12:58 WBC 15.1 H 14.3 H (4.5-11.0) K/mm3 RDW 13.0 L 13.0 L (13.2-15.2) % Lymph % (Auto) 8.5 L (13.4-35.0) % [place] % (Auto) 10.0 H (0.0-7.3) % [place] # (Auto) 1.5 H (0.0-0.8) K/mm3 Seg Neutrophils % 81.4 H (40.0-70.0) % Seg Neutrophils # 12.3 H (1.8-7.7) K/mm3 APTT (24.2-36.6) Sec. D-Dimer (0-234) ng/mlDDU Sodium 134 L (137-145) mmol/L BUN 23 H (9-20) mg/dL Glucose 233 H (75-100) mg/dL Ferritin (30.0-300.0) ng/mL Lactate Dehydrogenase (91-180) units/L 11/01/20 Range/Units 12:58 WBC (4.5-11.0) K/mm3 RDW (13.2-15.2) % Lymph % (Auto) (13.4-35.0) % [place] % (Auto) (0.0-7.3) % [place] # (Auto) (0.0-0.8) K/mm3 Seg Neutrophils % (40.0-70.0) % Seg Neutrophils # (1.8-7.7) K/mm3 APTT 20.6 L (24.2-36.6) Sec. D-Dimer (0-234) ng/mlDDU Sodium (137-145) mmol/L BUN (9-20) mg/dL Glucose (75-100) mg/dL Ferritin (30.0-300.0) ng/mL Lactate Dehydrogenase (91-180) units/L
[2020-11-01] MEDS ORDERED: REMDESIVIR 100 MG in SODIUM CHLORIDE 0.9% 250ML 250 ML IV SCH (16:00)
[2020-11-01] MEDS ORDERED: SODIUM CHLORIDE 0.9% 50 ML ONE (16:12)
[2020-11-01 17:36] VITALS: BP 115/84
== END 2020-11-01 18:26 | disposition home or self-care (01) | DRG 871 ==
LOC: ED 20:37 → UNDOADMIN 10-28 00:13 → 3A 10-28 00:13
PROVIDERS: ADMIT Hospitalist; ATTEND Internal Medicine
PROC: XW033E5 Introduction of Remdesivir Anti-infective into Peripheral Vein, Percutaneous Approach, New Technology Group 5 (ICD-10-PCS; principal; 2020-10-28)
DX: A41.9 Sepsis, unspecified organism (principal); U07.1 COVID-19; J96.01 Acute respiratory failure with hypoxia; J12.82 Pneumonia due to coronavirus disease 2019; E87.1 Hypo-osmolality and hyponatremia; R65.20 Severe sepsis without septic shock; E66.9 Obesity, unspecified; Z68.30 Body mass index [BMI] 30.0-30.9, adult; R73.9 Hyperglycemia, unspecified; T38.0X5A Adverse effect of glucocorticoids and synthetic analogues, initial encounter; Y92.89 Other specified places as the place of occurrence of the external cause
CPT/HCPCS: 36415; 71045; 80048; 80053; 80076; 82565; 82728; 82947; 83036; 83615; 83880; 84145; 84484; 85007; 85025; 85027; 85379; 85610; 85730; 86140; 87040; 93005; 93970; 96365; 96375; 96376; G0378; J0456; J0696; J1100; J1644; J1650; J1940; J8540; U0003